=== PATIENT | male | born 1955 | race Caucasian/White ===

== ENCOUNTER 2019-07-14 17:15 | Emergency (ER) | payer MEDICARE, MEDICAID, SELFPAY ==
--- NOTE | ~2019-07-14 | XR_ITS ---
EXAMINATION: XR chest 2V DATE: 07/14/2019 19:06 INDICATION: COPD presenting with 2-3 days of cough and fever. TECHNIQUE: PA and lateral views of the chest were obtained. COMPARISON: None FINDINGS: Evaluation limited particularly on the lateral projection by patient body habitus. Airspace opacities with air bronchograms at the posterior lung bases on the lateral projection. It is unclear whether t his on the left, right or bilaterally. No pleural effusion or pneumothorax. The cardiomediastinal rafy houette is normal. IMPRESSION: 1. Opacities with air bronchograms at the posterior lung bases concerning for pneumonia with differen tial including atelectasis, greater on the left, right or bilaterally. Reviewed, dictated and finalized at location A. UTER SYSTEMS ADMINISTRATOR IMPRESSION: 1. Opacities with air bronchograms at the posterior lung bases concerning for p neumonia with differential including atelectasis, greater on the left, right or bilaterally.
[2019-07-14 17:31] VITALS: BP 138/60; PULSE 82; RESP 20; TEMP 39.4; O2SAT 92
--- NOTE | 2019-07-14 18:13 | ED.SOB ---
HPI - SOB/Dyspnea General Chief Complaint: Shortness of Breath/Dyspnea Stated Complaint: fever/cough Time Seen by Provider: 07/14/19 18:12 Source: patient and RN notes reviewed Mode of arrival: EMS Limitations: no limitations History of Present Illness HPI Narrative: Pt is a 64 y/o male who presents to the ED, via EMS from [facility], with c/o a fever and a cough that began 3 days ago (07/11/19). Per nurse, pt was dx with CHF recently. Pt was sent from the [place] because he was not responding to his Lasix. Pt has Influenza A and he was started Tamiflu at the [place]. Pt had a chest x-ray yesterday that showed cardiomegaly and possible pneumonia. Pt last had Tylenol at 11 AM today. Per pt, pt notes that his temperature earlier today at the [place] was 100.2 degrees. He notes that he does not walk because he cannot get his body to cooperate enough to walk. He states that he fell last year and landed in the splits position. He notes that he was in the splits position for about 4 hours before he was able to get help to get up. Pt also reports fatigue, abd pain with coughing, no abd pain currently. He denies shortness of breath, he does report some faint wheezing. Pt reported chest pain, epigastric pain earlier in the day, none currently. MD elicited complaint: cough (and a fever) Onset (ago): day(s) (3) Timing: constant Associated symptoms: chest pain, abdominal pain (epigastric) and other (fatigue) Treatment prior to arrival: other (Tylenol at 11 AM) Related Data Allergies Allergy/AdvReac Type Severity Reaction Status Date / Time gabapentin AdvReac Unknown Verified 07/14/19 19:08 valsartan AdvReac Unknown Verified 07/14/19 19:09 Review of Systems Review of Systems: Narrative: CONSTITUTIONAL: Reports fever and fatigue. CARDIOVASCULAR: Reports pain with coughing, denies chest pain currently in the ED RESPIRATORY: Reports cough. Denies dyspnea. GASTROINTESTINAL: Reports epigastric abdominal pain, chronic SKIN: Reports leg swelling, chronic All systems reviewed & are unremarkable except as noted in HPI and below PMFSH Past Medical History Medical History (Updated 07/14/19 @ 19:49 by Moira Junior MD) Cardiomegaly CHF (congestive heart failure) COPD (chronic obstructive pulmonary disease) Influenza A Medical history unknown Sleep apnea Surgical History Surgical History (Updated 07/14/19 @ 19:28 by Holly Garcia) Surgical history unknown Social History Social History (Updated 07/14/19 @ 19:30 by Holly Garcia) Smoking status: Former smoker Gender identity (if verbalized by the patient): Male Exam Narrative: Exam Narrative: GENERAL: Well-appearing, awake, alert, obese, and in no acute distress. HEAD: Normocephalic, atraumatic. EYES: PERRLA and EOMI. ENT: Nares clear, no rhinorrhea or epistaxis. Mucous membranes moist. Oropharynx clear. NECK: Supple. CHEST: Faint expiratory wheezing right lower lung, left lung clear, shallow aeration due to body habitus. No respiratory distress. No tachypnea, no use of accessory muscles to breathe. HEART: Regular rate and rhythm. No murmur heard. Normal peripheral pulses. ABDOMEN: Soft, obese abdomen, no epigastric tenderness, no RUQ tenderness, nondistended, normal active bowel sounds. EXTREMITIES: Normal range of motion. Lower extremity lymphedema, chronic venous stasis changes, excoriation with mild erythema, no purulent discharge, no vesicles or weeping. SKIN: Warm, dry, no abscess NEURO: No focal deficits. Alert and oriented X3. Course Course Emergency Course: Patient presenting for evaluation of fever, cough, and staff at the care facility was concerned he was not responding to Lasix. At the time of initial assessment, ABCs are intact and vital signs are stable. Patient is morbidly obese, but overall is well-appearing without respiratory distress or increased work of breathing. Patient has obstructive sleep apnea, borderline hypoxia but refuses to wear oxygen. He has influ
--- NOTE | 2019-07-14 18:20 | ECG_ITS ---
Measurements Intervals [place] Rate: 81 P: [place]: 0 QRS: 62 QRSD: 152 T: 4 QT: 381 QTc: 443 Interpretive Statements ATRIAL FIBRILLATION RIGHT BUNDLE BRANCH BLOCK LOW VOLTAGE- PRECORDIAL LEADS ABNORMAL ECG Electronically Signed On 07-15-2019 7:07:36 MILK CONDENSER by Sunil Barker D.O.
[2019-07-14] MEDS: ALBUTEROL SULFATE NEB 2.5 MG/0.5 ML INH 5 MG INHALATION (18:33)
[2019-07-14] MEDS: IPRATROPIUM BR 0.02% INH SOLN 0.5 MG/2.5 ML VIAL INHALATION (18:33)
[2019-07-14 18:41] VITALS: PULSE 81; RESP 24
[2019-07-14 18:47] LABS: Alveolar/Arterial O2 Gradient 42.6 mmHg; Device ROOM AIR; Fractional Inspired Oxygen 21 %; Modified Allen's Test Pass; Oxygen Content ABG 18.1 %vol (16.0-22.0); Oxygen Saturation ABG 92.2 % (95.0-100.0); Oxyhemoglobin 90.7 % THb (90.0-100.0); PCO2 ABG 39.9 mmHg (35.0-45.0); PO2 ABG 59.4 mmHg (80.0-100.0); PO2 FiO2 Ratio Arterial Blood 2.83 %; Site Drawn LEFT RADIAL; Total Hemoglobin 14.2 g/dL (12.0-18.0); pH ABG 7.464 (7.350-7.450)
[2019-07-14 18:49] VITALS: PULSE 83; RESP 20
[2019-07-14 18:51] LABS: Basophils Percent Auto 0.5 % (0.2-1.2); Eosinophils Percent Auto 0.5 % (0-4.4); Hematocrit 41.1 % (42.0-52.0); Hemoglobin 13.4 g/dL (14.0-18.0); Immature Granulocyte Absolute 0.02 K/mm3 (0.00-0.031); Immature Granulocyte Percent A 0.5 % (0-0.5); Immature Platelet Fraction Pct 2.5 % (0.9-11.2); Lymphocytes Absolute Auto 0.46 K/mm3 (0.9-3.2); Lymphocytes Percent Auto 10.8 % (18.3-44.2); Mean Corpuscular HGB Conc 32.6 g/dl (32-36); Mean Corpuscular Hemoglobin 29.5 pg (26-34); Mean Corpuscular Volume 90.3 fl (80-100); Monocytes Absolute Auto 0.5 K/mm3 (0.1-0.6); Monocytes Percent Auto 11.1 % (2.6-8.5); Neutrophils Absolute Auto 3.3 K/mm3 (1.3-6.7); Neutrophils Percent Auto 76.6 % (45.5-73.1); Platelet Count Result 127 k/mm3 (150-375); Red Blood Count 4.55 M/mm3 (4.6-6.20); Red Cell Distribution Width 16.1 % (11.5-14.5); White Blood Count 4.2 K/mm3 (4.5-10.0)
[2019-07-14 18:58] LABS: INR 1.2; Prothrombin Time 15.2 Seconds (11.1-14.7)
[2019-07-14 18:59] LABS: Partial Thromboplastin Time 35.6 SECONDS (22.3-36.8)
[2019-07-14 19:00] LABS: Lactic Acid Reflex 0.9 mmol/L (0.7-2.1); Lipase 68 U/L (23-300)
[2019-07-14 19:09] LABS: NT Pro B Type Natriuretic Pept 2150 PG/ML (5-100)
[2019-07-14] MEDS: methylPREDNISolone SOD SUCC 125 MG VIAL IV PUSH (19:17)
[2019-07-14] MEDS: SODIUM CHLORIDE 0.9% IV 500 ML 999 ML IV CONT (19:17)
[2019-07-14] MEDS: ACETAMINOPHEN 500 MG TABLET 1000 MG PO (19:28)
[2019-07-14 19:30] VITALS: BP 126/70; PULSE 86; RESP 11; O2SAT 89
[2019-07-14 19:52] LABS: Alanine Aminotransferase 30 U/L (4-50); Albumin Level 3.6 g/dL (3.5-5.1); Alkaline Phosphatase 163 U/L (38-126); Aspartate Amino Transferase 38 U/L (17-59); Bilirubin,Total 1.1 mg/dL (0.2-1.3); Blood Urea Nitrogen 17 mg/dL (9-20); Calcium 8.3 mg/dL (8.4-10.2); Carbon Dioxide 28 mmol/L (22-30); Chloride 92 mmol/L (98-107); Estimated Glomerular Filt Rate > 60; Glucose 106 mg/dL (75-110); Potassium 3.8 mmol/L (3.4-5.0); Sodium 132 mmol/L (137-145)
[2019-07-14] MEDS: AZITHROMYCIN 250 MG TABLET 1000 MG PO (19:57)
[2019-07-14] MEDS: OSELTAMIVIR PHOSPHATE 75 MG CAP PO (19:58)
[2019-07-14 20:04] LABS: Troponin I < 0.012 ng/mL (0.000-0.034)
--- NOTE | 2019-07-14 21:39 | PC.NURSE ---
Called Shalonda to transport patient back to facility...ETA approximately [phone].
[2019-07-14 22:45] VITALS: BP 123/63; PULSE 69; RESP 18; O2SAT 90
[2019-07-14 23:15] VITALS: BP 123/63; PULSE 69; RESP 24; O2SAT 90
== END 2019-07-14 23:15 ==
PROVIDERS: Emergency Provider Emergency Medicine
DX: J10.1 Influenza due to other identified influenza virus with other respiratory manifestations (principal); J18.9 Pneumonia, unspecified organism; I50.9 Heart failure, unspecified; J44.9 Chronic obstructive pulmonary disease, unspecified; G47.30 Sleep apnea, unspecified; Z87.891 Personal history of nicotine dependence; I48.91 Unspecified atrial fibrillation
CPT/HCPCS: 36415; 36600; 71046; 80053; 82805; 83605; 83690; 83880; 84484; 85025; 85055; 85610; 85730; 87040; 87804; 93005; 94640; 96365; 96375; 99284; A9270; J0696; J2930; J7040

== ENCOUNTER 2021-06-01 08:00 | Emergency (ER) | payer MEDICARE, MEDICAID, SELFPAY ==
[2021-06-01] VITALS (26 sets, daily range): BP systolic 131–158; BP diastolic 56–74; PULSE 83–107; RESP 15–40; TEMP 37.1; O2SAT 81–99
--- NOTE | ~2021-06-01 | XR_ITS ---
EXAMINATION: XR chest 2V DATE: 06/01/2021 08:35 INDICATION: Shortness of breath TECHNIQUE: frontal and lateral views of the chest were obtained. COMPARISON: Chest radiograph dated 07/14/2019 FINDINGS: Evaluation somewhat limited by patient body habitus. Chronic elevation the right hemidiaphragm. Opaci ties in the right lower lung zone consistent with small right pleural effusion and associated atelect asis versus pneumonia. Pulmonary vascular congestion. Bronchial wall thickening versus bronchial cuff ing in the lower lung zones which could represent bronchitis or mild pulmonary edema. No pneumothorax . The cardiomediastinal silhouette is normal. IMPRESSION: 1. Small right pleural effusion with associated right basilar atelectasis and/or pneumonia. 2. Bronchial wall thickening in the bilateral infrahilar regions which could be due to bronchitis or mild pulmonary edema. Reviewed, dictated and finalized at location A. LACER IMPRESSION: 1. Small right pleural effusion with associated right basilar atelectasis and/o r pneumonia. 2. Bronchial wall thickening in the bilateral infrahilar regions which could be due to bronchitis or mild pulmonary edema.
--- NOTE | 2021-06-01 08:15 | ECG_ITS ---
Measurements Intervals [place] Rate: 91 P: AL: 0 QRS: 94 QRSD: 138 T: 16 QT: 379 QTc: 467 Interpretive Statements ATRIAL FIBRILLATION RIGHT BUNDLE BRANCH BLOCK BASELINE ARTIFACT- I, II, III, AVR, AVL, AVF, V2-V3 ABNORMAL ECG Electronically Signed On 06-01-2021 9:44:44 WELFARE ADMINISTRATOR by Sunil Barker D.O.
--- NOTE | 2021-06-01 08:18 | ED.SOB ---
HPI - SOB/Dyspnea General Chief Complaint: Shortness of Breath/Dyspnea Stated Complaint: SOB Time Seen by Provider: 06/01/21 08:18 Source: patient and EMS Mode of arrival: EMS Limitations: no limitations History of Present Illness HPI Narrative: Patient is 66 years old white male brought to the emergency room by ambulance from [facility] because of hypoxia. Patient is telling me that he had a dream that he is building a house with one of his friends and that house was unique because have no exit. Patient somehow got up and realized immediately that he is not familiar with his bedroom, patient called 911 then the nurse came over and found that the oxygenation in the 70s and patient have no nasal cannula on. Patient on chronic oxygen by nasal cannula 2 L. After placing the nasal cannula back patient started going slowly back to normal, become more alert, less confused and almost back to normal. In the emergency room patient is awake, alert and oriented x4 denying any symptoms. Patient is telling me that he feels exactly the same as yesterday nothing new and nothing different. Patient denies any fever, chills, nausea, vomiting, headache, shortness of breath, chest pain. Patient is requesting a breakfast right now Related Data Allergies Allergy/AdvReac Type Severity Reaction Status Date / Time gabapentin AdvReac Unknown Verified 07/14/19 19:08 valsartan AdvReac Unknown Verified 07/14/19 19:09 Review of Systems Review of Systems: CONSTITUTIONAL: Denies fever, chills, or sweats. EYES: Denies visual changes, redness, or discharge. ENT: Denies rhinorrhea, congestion, sore throat, or otalgia. CARDIOVASCULAR: Denies chest pain, palpitations, or edema. RESPIRATORY: Denies cough or dyspnea. GASTROINTESTINAL: Denies abdominal pain, nausea, vomiting, or diarrhea. GENITOURINARY: Denies dysuria or hematuria. SKIN: Denies rash or itching. MUSCULOSKELETAL: Denies back pain, joint pain, or myalgia. NEUROLOGIC: Denies headache, numbness, or weakness. PSYCHIATRIC: Denies anxiety or depression. [facility] Past Medical History Medical History Cardiomegaly CHF (congestive heart failure) COPD (chronic obstructive pulmonary disease) Influenza A Medical history unknown Sleep apnea Surgical History Surgical History Surgical history unknown Social History Social History Smoking status: Former smoker Gender identity (if verbalized by the patient): Male Exam Narrative: General appearance: Well-developed, well-nourished, morbidly obese Skin: Normal color Head: Normocephalic, nontraumatic Eyes: Clear conjunctiva ENT: Oropharynx normal, ears normal, nose normal Neck: Supple, nontender Chest and respiratory: Airway patent, no respiratory distress, no accessory muscle use Heart: Regular rate/rhythm Abdomen: Soft, nontender, no organomegaly, quiet bowel sounds Vascular: Normal peripheral pulses, normal capillary refill. Musculoskeletal: General limitation of movement because of the obesity Neurologic: Alert and oriented ?3, LEVEL VIAL INSIDE GRINDER is normal as tested, no gross motor deficit Course Course Emergency Course: Resolved, improved Vital Signs Vital signs: Vital Signs Temperature 37.1 C 06/01/21 08:04 Pulse Rate 92 06/01/21 08:04 Respiratory Rate 27 H 06/01/21 08:04 Blood Pressure 133/71 06/01/21 08:04 Pulse Oximetry 81 L 06/01/21 08:04 Temperature 37.1 C 06/01/21 08:04 Pulse Rate 89 06/01/21 10:01 Respiratory Rate 21 H 06/01/21 10:01 Blood Pressure 156/64 H 06/01/21 10:01 Pulse Oximetry 9
[2021-06-01 08:23] LABS: Basophils Percent Auto 0.6 % (0.2-1.2); Eosinophils Absolute Auto 0.3 K/mm3 (0-0.3); Eosinophils Percent Auto 4.6 % (0-4.4); Hematocrit 41.8 % (42.0-52.0); Hemoglobin 11.8 g/dL (14.0-18.0); Immature Granulocyte Absolute 0.04 K/mm3 (0.00-0.031); Immature Granulocyte Percent A 0.6 % (0-0.5); Lymphocytes Absolute Auto 0.73 K/mm3 (0.9-3.2); Lymphocytes Percent Auto 10.1 % (18.3-44.2); Mean Corpuscular HGB Conc 28.2 g/dl (32-36); Mean Corpuscular Hemoglobin 29.2 pg (26-34); Mean Corpuscular Volume 103.5 fl (80-100); Mean Platelet Volume 9.6 fl (7.4-10.4); Monocytes Absolute Auto 0.7 K/mm3 (0.1-0.6); Monocytes Percent Auto 10.2 % (2.6-8.5); Neutrophils Absolute Auto 5.4 K/mm3 (1.3-6.7); Neutrophils Percent Auto 73.9 % (45.5-73.1); Platelet Count Result 171 k/mm3 (150-375); Red Blood Count 4.04 M/mm3 (4.6-6.20); Red Cell Distribution Width 17.2 % (11.5-14.5); White Blood Count 7.3 K/mm3 (4.5-10.0)
[2021-06-01 08:40] LABS: Alanine Aminotransferase 17 U/L (4-50); Albumin Level 3.4 g/dL (3.5-5.1); Alkaline Phosphatase 169 U/L (38-126); Aspartate Amino Transferase 28 U/L (17-59); Blood Urea Nitrogen 15 mg/dL (9-20); Calcium 8.8 mg/dL (8.4-10.2); Carbon Dioxide > 40 mmol/L (22-30); Chloride 79 mmol/L (98-107); Estimated Glomerular Filt Rate > 60; Glucose 114 mg/dL (65-110); Potassium 4.2 mmol/L (3.4-5.0); Sodium 137 mmol/L (137-145)
[2021-06-01 08:48] LABS: NT Pro B Type Natriuretic Pept 1990 pg/mL (5-100); Troponin I < 0.012 ng/mL (0.000-0.034)
[2021-06-01 08:56] LABS: Base Excess ABG 27.7 mEq/l (+/-2.0); Fractional Inspired Oxygen 28 %; HCO3 ABG 58.9 mEq/l (22.0-26.0); Oxygen Content ABG 16.6 %vol (16.0-22.0); Oxyhemoglobin 93.4 % THb (90.0-100.0); PO2 ABG 82.5 mmHg (80.0-100.0); PO2 FiO2 Ratio Arterial Blood 2.95 %; Total Hemoglobin 12.6 g/dL (12.0-18.0); pH ABG 7.382 (7.350-7.450)
[2021-06-01 09:04] LABS: PCO2 ABG 101.3 mmHg (35.0-45.0)
[2021-06-01 09:21] LABS: INR 1.1; Partial Thromboplastin Time 28.9 SECONDS (22.3-36.8); Prothrombin Time 14.1 Seconds (11.1-14.7)
[2021-06-01 09:24] LABS: D Dimer 0.46 ug/mL (<0.48)
--- NOTE | 2021-06-01 09:56 | PC.NURSE ---
[facility] contacted for transport back to [facility]. eta [phone]
--- NOTE | 2021-06-01 11:42 | PC.NURSE ---
report called to [facility]
[2021-06-01 14:13] LABS: Device NASAL CANNULA; Modified Allen's Test Pass; Site Drawn RIGHT RADIAL
[2021-06-01 15:21] LABS: Glucose Point of Care 114 mg/dl (65-105)
--- NOTE | 2021-06-01 18:00 | PC.NURSE ---
called Shalonda at [phone], to go back to [facility] eta [phone], updated at 1447, eta 1700, updated at 1800, eta 1815.
[2021-06-02 03:58] LABS: SARS-CoV-2 RNA PCR Negative
== END 2021-06-01 18:30 ==
LOC: ANHED 09:50
PROVIDERS: Emergency Provider Emergency Medicine; PCP Internal Medicine
DX: G47.34 Idiopathic sleep related nonobstructive alveolar hypoventilation (principal); I50.9 Heart failure, unspecified; J44.9 Chronic obstructive pulmonary disease, unspecified; Z99.81 Dependence on supplemental oxygen; Z20.822 Contact with and (suspected) exposure to COVID-19; Z87.891 Personal history of nicotine dependence
CPT/HCPCS: 36415; 36600; 71046; 80053; 82805; 82948; 83880; 84484; 85025; 85380; 85610; 85730; 87804; 93005; 99284; C9803; U0003; U0005

== ENCOUNTER 2021-06-09 10:13 | Inpatient (IN) | payer MEDICARE, MEDICAID, SELFPAY ==
[2021-06-09] VITALS (23 sets, daily range): BP systolic 112–140; BP diastolic 64–76; PULSE 57–90; RESP 15–31; O2SAT 97–100
--- NOTE | ~2021-06-09 | XR_ITS ---
EXAMINATION: XR chest 1V portable DATE: 06/09/2021 11:27 INDICATION: Shortness of breath TECHNIQUE: frontal view of the chest was obtained. COMPARISON: Chest radiograph dated 05/24/2021 FINDINGS: Assessment is somewhat limited by patient body habitus as well as extrusion of the lateral left lower lung zone and costophrenic angle from the field of imaging. There are new opacities in the right mid to lower lung zone consistent with small to moderate right pleural effusion portion tracking along t he fissure and associated basilar atelectasis and/or pneumonia. Bandlike discoid atelectasis/scarring at the left apex. Hazy opacities throughout the left hemithorax with suggestion of small more patchy opacity left lower lung zone suspicious for small posterior layering left pleural effusion additiona l basilar atelectasis and/or pneumonia. No pneumothorax. Cardiomegaly. IMPRESSION: 1. Limited study with bilateral lung disease consistent with small to moderate-sized right and likely small left pleural effusions with basilar atelectasis and/or pneumonia. 2. Cardiomegaly. Reviewed, dictated and finalized at location B. SECURITY ARCHITECT IMPRESSION: 1. Limited study with bilateral lung disease consistent with small to moderate- sized right and likely small left pleural effusions with basilar atelectasis an d/or pneumonia. 2. Cardiomegaly.
[2021-06-09 11:05] LABS: Basophils Percent Auto 0.4 % (0.2-1.2); Eosinophils Absolute Auto 0.2 K/mm3 (0-0.3); Eosinophils Percent Auto 2.3 % (0-4.4); Hematocrit 42.9 % (42.0-52.0); Hemoglobin 12.3 g/dL (14.0-18.0); Immature Granulocyte Absolute 0.04 K/mm3 (0.00-0.031); Immature Granulocyte Percent A 0.4 % (0-0.5); Lymphocytes Absolute Auto 0.59 K/mm3 (0.9-3.2); Lymphocytes Percent Auto 6.2 % (18.3-44.2); Mean Corpuscular HGB Conc 28.7 g/dl (32-36); Mean Corpuscular Hemoglobin 29.5 pg (26-34); Mean Corpuscular Volume 102.9 fl (80-100); Mean Platelet Volume 9.4 fl (7.4-10.4); Monocytes Absolute Auto 0.9 K/mm3 (0.1-0.6); Monocytes Percent Auto 9.8 % (2.6-8.5); Neutrophils Absolute Auto 7.7 K/mm3 (1.3-6.7); Neutrophils Percent Auto 80.9 % (45.5-73.1); Platelet Count Result 182 k/mm3 (150-375); Red Blood Count 4.17 M/mm3 (4.6-6.20); White Blood Count 9.5 K/mm3 (4.5-10.0)
[2021-06-09 11:14] LABS: Alveolar/Arterial O2 Gradient 313.4 mmHg; Base Excess ABG 29.8 mEq/l (+/-2.0); Fractional Inspired Oxygen 100 %; HCO3 ABG 64.3 mEq/l (22.0-26.0); Oxygen Content ABG 18.4 %vol (16.0-22.0); Oxygen Saturation ABG 99.4 % (95.0-100.0); Oxyhemoglobin 97.1 % THb (90.0-100.0); PO2 ABG 260.6 mmHg (80.0-100.0); PO2 FiO2 Ratio Arterial Blood 2.61 %
[2021-06-09 11:16] LABS: Modified Allen's Test Pass; Site Drawn LEFT RADIAL; pH ABG 7.283 (7.350-7.450)
[2021-06-09 11:17] LABS: Device NON-REBREATHER MASK
[2021-06-09 11:30] LABS: Blood Urea Nitrogen 18 mg/dL (9-20); Calcium 9.3 mg/dL (8.4-10.2); Carbon Dioxide > 40 mmol/L (22-30); Chloride 79 mmol/L (98-107); Estimated CRCL calculation 243 ml/min; Estimated Glomerular Filt Rate > 60; Glucose 117 mg/dL (65-110); Potassium 4.5 mmol/L (3.4-5.0); Sodium 137 mmol/L (137-145)
[2021-06-09 11:33] LABS: NT Pro B Type Natriuretic Pept 3100 pg/mL (5-100)
--- NOTE | 2021-06-09 12:58 | ED.SOB ---
HPI - SOB/Dyspnea General Chief Complaint: Shortness of Breath/Dyspnea Stated Complaint: DIFFICULTY BREATHING Time Seen by Provider: 06/09/21 10:30 History of Present Illness HPI Narrative: Patient is a 66-year-old male with history of COPD and CHF who is dependent on 2 L O2 via nasal cannula who presents ER with decreased oxygen saturation. Lives in a long-term. Patient found with O2 saturation of 86% and was placed on nonrebreather by EMS with immediate improvement. Patient reports increased sleepiness and fatigue ongoing for couple weeks. No fevers or chills or sweats. Denies cough. Patient reports he does not sleep with the BiPAP as he does not have one. Related Data Allergies Allergy/AdvReac Type Severity Reaction Status Date / Time gabapentin AdvReac Unknown Verified 06/09/21 10:29 valsartan AdvReac Unknown Verified 06/09/21 10:29 Review of Systems Review of Systems: ROS unobtainable: Yes unobtainable due to mental status PMFSH Past Medical History Medical History Cardiomegaly CHF (congestive heart failure) COPD (chronic obstructive pulmonary disease) Influenza A Medical history unknown Sleep apnea Surgical History Surgical History Surgical history unknown Social History Social History Smoking status: Former smoker Gender identity (if verbalized by the patient): Male Exam Narrative: GENERAL: Chronically ill-appearing, morbidly obese. HEAD: Normocephalic, atraumatic. ENT: Mucous membranes moist. CHEST: Clear to auscultation. No respiratory distress. HEART: Regular rate and rhythm. Normal peripheral pulses. ABDOMEN: Soft, nontender, protuberant abdomen. EXTREMITIES: Normal range of motion. 2+edema. SKIN: Warm, dry, no rash. NEURO: Alert and oriented x3. PSYCH: Normal mood and affect. Course Course Emergency Course: Patient waking up on BiPAP. Admit to hospital service. Vital Signs Vital signs: Vital Signs Pulse Rate 71 06/09/21 10:18 Respiratory Rate 23 H 06/09/21 10:18 Blood Pressure 132/73 06/09/21 10:18 Pulse Oximetry 100 06/09/21 10:18 Pulse Rate 73 01/05/22 16:40 Respiratory Rate 22 H 06/09/21 16:40 Blood Pressure 131/66 06/09/21 14:56 Pulse Oximetry 100 06/09/21 16:40 MDM - SOB/Dyspnea Lab Data Result diagrams: 06/09/21 10:53 06/09/21 10:53 Labs: Lab Results 06/09/21 06/09/21 Range/Units 10:53 10:53 WBC 9.5 (4.5-10.0) K/mm3 RBC 4.17 L (4.6-6.20) M/mm3 Hgb 12.3 L (14.0-18.0) g/dL Hct 42.9 (42.0-52.0) % MCV 102.9 H (80-100) fl MCH 29.5 (26-34) pg MCHC 28.7 L (32-36) g/dl RDW 17.0 H (11.5-14.5) % Plt Count 182 (150-375) k/mm3 MPV 9.4 (7.4-10.4) fl Immature Gran % (Auto) 0.4 (0-0.5) % Neut % (Auto) 80.9 H (45.5-73.1) % Lymph % (Auto) 6.2 L (18.3-44.2) % [place] % (Auto) 9.8 H (2.6-8.5) % Eos % (Auto) 2.3 (0-4.4) % Baso % (Auto) 0.4 (0.2-1.2) % Lymph # (Auto) 0.59 L (0.9-3.2) K/mm3 [place] # (Auto) 0.9 H (0.1-0.6) K/mm3 Eos # (Auto) 0.2 (0-0.3) K/mm3 Baso # (Auto) 0.0 (0.0-0.1) K/mm3 Abs Immat Gran (auto) 0.04 H (0.00-0.031) K/mm3 Absolute Neuts (auto) 7.7 H (1.3-6.7) K/mm3 Absolute Nucleated RBC 0.0 (0.0-0.012) K/mm3 Nucleated RBC % 0.0 (0.0-0.2) % Sodium 137 (137-145) mmol/L Potassium 4.5 (3.4-5.0) mmol/L Chloride 79 L (98-107) mmol/L Carbon Dioxide > 40 H (22-30) mmol/L Anion Gap (8-16) mmol/L BUN 18 (9-20) mg/dL Creatinine 0.60 L (0.7-1.3) mg/dL Estim Creat Clear Calc 243 ml/min Estimated GFR > 60 (59 - ) Glucose 117 H (65-110) mg/dL Calcium 9.3 (8.4-10.2) mg/dL NT-Pro-B Natriuret Pep 3100 H (5-100) pg/mL ABG Data ABG results: 06/09/21 11:06 Puncture Site Left radial ABG pH 7.283 L* ABG pCO2 13
--- NOTE | 2021-06-09 14:00 | PC.NURSE ---
attempted to place catheter x2, unable to do so. will call and ask for [place] catheter
[2021-06-09] MEDS: FUROSEMIDE INJ 40 MG/4 ML VIAL IV PUSH (14:25)
--- NOTE | 2021-06-09 14:27 | PC.NURSE ---
condom catheter applied per ZAIDA Diehl.
[2021-06-09] MEDS: ONDANSETRON INJ 4 MG/2 ML VIAL IV PUSH (15:49)
--- NOTE | 2021-06-09 18:50 | PM.IMHP ---
H&P: HPI History of Present Illness Date/Time: 06/09/21 18:50 ED-HPI Narrative: Patient is a 66-year-old male with history of COPD and CHF who is dependent on 2 L O2 via nasal cannula who presents ER with decreased oxygen saturation. Lives in a assisted. Patient found with O2 saturation of 86% and was placed on nonrebreather by EMS with immediate improvement. Patient reports increased sleepiness and fatigue ongoing for couple weeks. No fevers or chills or sweats. Denies cough. Patient reports he does not sleep with the BiPAP as he does not have one. 06/09/2021 interval history morbidly obese with acute respiratory failure hypoxia secondary to hypercarbia currently ABG showed pCO2 of 139 patient is somnolent on BiPAP unable to provide any history review of symptom will continue present management and will monitor. Chief Complaint: shortness of breath Review of Systems Review of Systems: ROS unobtainable: Yes unobtainable due to medical condition PMFSH Past Medical History Medical History (Updated 06/10/21 @ 17:41 by Andrea Mcdonald MD) Cardiomegaly CHF (congestive heart failure) COPD (chronic obstructive pulmonary disease) Influenza A Medical history unknown Sleep apnea Surgical History Surgical History Surgical history unknown Social History Social History Smoking status: Former smoker Gender identity (if verbalized by the patient): Male Meds Home Medications and Allergies Home Medications Medication Instructions Recorded Confirmed Type acetaminophen [Tylenol] 650 mg PO Q6-12H 7 Days #30 cap 07/14/19 Rx albuterol sulfate 1 inh INHALATION Q4-6H PRN #1 each 07/14/19 Rx doxycycline hyclate 100 mg PO Q12H 10 Days #20 cap 07/14/19 Rx oseltamivir [Tamiflu] 75 mg PO Q12H 5 Days #10 cap 07/14/19 Rx prednisone 60 mg PO DAILY 5 Days #15 tablet 07/14/19 Rx pregabalin 75 mg capsule 75 mg PO TID #270 cap 08/15/19 Rx Allergies Allergy/AdvReac Type Severity Reaction Status Date / Time gabapentin AdvReac Unknown Verified 06/09/21 10:29 valsartan AdvReac Unknown Verified 06/09/21 10:29 Vital Signs Vital Signs - 24 hr 06/09/21 10:18 06/09/21 10:28 06/09/21 11:46 Pulse Rate 71 76 Respiratory Rate 23 H 23 H Blood Pressure 132/73 133/67 Pulse Oximetry 100 100 100 06/09/21 11:47 06/09/21 11:59 06/09/21 12:00 Pulse Rate 68 68 82 Respiratory Rate 15 25 H 26 H Blood Pressure Pulse Oximetry 100 100 99 06/09/21 12:55 06/09/21 13:00 06/09/21 13:29 Pulse Rate 62 57 L 71 Respiratory Rate 19 23 H 16 Blood Pressure Pulse Oximetry 100 100 06/09/21 13:30 06/09/21 14:39 06/09/21 14:56 Pulse Rate 74 69 68 Respiratory Rate 18 24 H 18 Blood Pressure 131/66 Pulse Oximetry 100 100 100 06/09/21 16:40 06/09/21 17:53 06/09/21 18:07 Pulse Rate 73 84 80 Respiratory Rate 22 H 23 H 22 H Blood Pressure 112/64 Pulse Oximetry 100 99 100 Exam Narrative: morbidly obese BMI 86.6 Patient is comfortable, NAD HEENT: eyes are clear and none icteric on BiPAP LUNGS: normal respiratory effort ABD: distended Lower extremities: edema SKIN: nonjaundiced Neuro: grossly intact. H&P: Results Labs Labs: Short CBC 06/09/21 Range/Units 10:53 WBC 9.5 (4.5-10.0) K/mm3 Hgb 12.3 L (14.0-18.0) g/dL Hct 42.9 (42.0-52.0) % Plt Count 182 (150-375) k/mm3 BMP 06/09/21 10:53 Sodium 137 Potassium 4.5 Chloride 79 L Carbon Dioxide > 40 H BUN 18 Creatinine 0.60 L Glucose 117 H Calcium 9.3 Assessment and Plan Assessment and plan (1) Acute and chronic respiratory failure with hypercapnia: Code(s): J96.22 - Acute and chronic respiratory failure with hypercapnia Status: Acute Assessment and Plan: ED-HPI Narrative: Patient is a 66-year-old male with history of COPD and CHF who is dependent on 2 L O2 via nasal cannula who p
[2021-06-10] VITALS (38 sets, daily range): BP systolic 101–162; BP diastolic 60–130; PULSE 66–105; RESP 14–32; TEMP 36.8–37.2; O2SAT 49–100; BMI 86.6
--- NOTE | 2021-06-10 02:37 | PC.NURSE ---
roofing plant supervisor contacted at this time to move pt to more comfortable bed.
--- NOTE | 2021-06-10 04:39 | PC.NURSE ---
respiratory to room at this time.
--- NOTE | 2021-06-10 06:50 | PC.NURSE ---
Wedge moved under pt right hip to promote pt comfort.
--- NOTE | 2021-06-10 09:25 | PC.NURSE ---
This nurse walked into patient having his bipap off of his face. When this nurse attempted to replace the mask, pt stated that he did not want me to put it on and that, I am a man. I have grown children older than you. I don't want that mask on. I just want to . This nurse attempted to explain to the patient the importance of having the mask on, but pt still stated that he did not want me to put on any type of oxygen. This nurse then called in the Charge nurse Teri and other RN Thu to verify with this nurse that the pt is A&Ox4 and indeed wants to be DNR. Pt is currently A&Ox4 and states that he wants no resuscitative measures if he were to stop breathing or his heart were to stop. MD Collado called to be made aware of pt change in status.
--- NOTE | 2021-06-10 09:40 | PC.NURSE ---
this nurse spoke to md Cutler to make him aware of pt wishes to become a DNR. Per , he states that we are to talk to [facility] to clarify if he is a DNR at the facility.
--- NOTE | 2021-06-10 09:55 | PC.NURSE ---
This nurse spoke to [facility] and was notified that the pt is a full code and has never had paperwork to be a DNR.
[2021-06-10 10:09] LABS: Alveolar/Arterial O2 Gradient 157.3 mmHg; Fractional Inspired Oxygen 44 %; HCO3 ABG 50.1 mEq/l (22.0-26.0); Oxygen Content ABG 16.2 %vol (16.0-22.0); PO2 ABG 55.6 mmHg (80.0-100.0); PO2 FiO2 Ratio Arterial Blood 1.26 %; Total Hemoglobin 13.2 g/dL (12.0-18.0); pH ABG 7.371 (7.350-7.450)
[2021-06-10 10:10] LABS: PCO2 ABG 88.4 mmHg (35.0-45.0)
[2021-06-10 10:11] LABS: Device HIGH FLOW NASAL CANN; Modified Allen's Test Pass; Oxyhemoglobin 87.5 % THb (90.0-100.0); Site Drawn RIGHT RADIAL
--- NOTE | 2021-06-10 10:14 | PC.NURSE ---
This nurse attempted to call MD Mcdonald for updates on pt code status and critical lab results. This nurse left a voicemail and will attempt to call later.
[2021-06-10] MEDS: BUDESONIDE RESPULE NEB 0.5 MG/2 ML AMP INHALATION ×2 (10:47→21:00)
[2021-06-10] MEDS: OLANZapine 10 MG INJ VIAL 5 MG IM ×2 (11:12→11:18)
[2021-06-10] MEDS: methylPREDNISolone SOD SUCC 125 MG VIAL IV PUSH (11:16)
[2021-06-10 11:17] LABS: Hematocrit 41.4 % (42.0-52.0); Mean Corpuscular Hemoglobin 29.2 pg (26-34); Mean Corpuscular Volume 100.7 fl (80-100); Mean Platelet Volume 9.5 fl (7.4-10.4); Platelet Count Result 209 k/mm3 (150-375); Red Blood Count 4.11 M/mm3 (4.6-6.20); Red Cell Distribution Width 16.7 % (11.5-14.5); White Blood Count 12.5 K/mm3 (4.5-10.0)
--- NOTE | 2021-06-10 11:23 | PC.NURSE ---
This nurse entered room and found patient without nasal cannula on. This nurse attempted to place the nasal cannula back on and the pt ripped the cannula tubing in half. Pt was noted to drop down to 45%. Pt stated things like, I don't want to be on this cruise anymore. and Stop sawing off my legs, I can see blood everywhere. Pt was not being touched at this time. This nurse called MD and made him aware. This nurse received a medication order. This nurse also convinced pt to place the nasal cannula on after he started to turn purple and become more labored and tachypneic.
[2021-06-10 12:02] LABS: Blood Urea Nitrogen 23 mg/dL (9-20); Carbon Dioxide > 40 mmol/L (22-30); Chloride 77 mmol/L (98-107); Estimated CRCL calculation 211 ml/min; Estimated Glomerular Filt Rate > 60; Glucose 137 mg/dL (65-110); Potassium 4.9 mmol/L (3.4-5.0); Sodium 132 mmol/L (137-145)
[2021-06-10] MEDS: SODIUM CHLORIDE 0.9% INJ 10 ML 2 ML (12:32)
[2021-06-10] MEDS: LORazepam INJ (*CRX) 2 MG/ML VIAL 1 MG IV PUSH ×2 (12:32→23:22)
--- NOTE | 2021-06-10 17:45 | PM.IMPN ---
Progress Note: A&P Assessment and Plan (1) Acute and chronic respiratory failure with hypercapnia: Code(s): J96.22 - Acute and chronic respiratory failure with hypercapnia Status: Acute Assessment and Plan: ED-HPI Narrative: Patient is a 66-year-old male with history of COPD and CHF who is dependent on 2 L O2 via nasal cannula who presents ER with decreased oxygen saturation. Lives in a snf. Patient found with O2 saturation of 86% and was placed on nonrebreather by EMS with immediate improvement. Patient reports increased sleepiness and fatigue ongoing for couple weeks. No fevers or chills or sweats. Denies cough. Patient reports he does not sleep with the BiPAP as he does not have one. 06/09/2021 interval history morbidly obese with acute respiratory failure hypoxia secondary to hypercarbia currently ABG showed pCO2 of 139 patient is somnolent on BiPAP unable to provide any history review of symptom will continue present management and will monitor. 06/10/2021 interval history morbidly obese with acute respiratory failure hypoxia secondary to hypercarbia upon arrival ABG showed pCO2 of 139 patient is somnolent on BiPAP, repeat ABG this morning showed pCO2 88 today patient agitated and does not want to keep BiPAP keep taking and off patient was given Zyprexa no improved was given Ativan 1 mg time one, give the patient methylprednisone 125 mg time and started the patient 60 mg every 8 hours, will continue duo-neb, and Pulmicort, patient also has history congestive heart failure diurese the patient IV Lasix 40 mg b.i.d. will continue to monitor will have a PT OT evaluate the patient and further recommendation to follow. (2) CHF (congestive heart failure): Code(s): I50.9 - Heart failure, unspecified Status: Acute Assessment and Plan: patient being diuresed (3) COPD (chronic obstructive pulmonary disease): Code(s): J44.9 - Chronic obstructive pulmonary disease, unspecified Status: Acute Assessment and Plan: most likely exacerbation of COPD Subjective Date/time seen: 06/10/21 17:45 ED-HPI Narrative: Patient is a 66-year-old male with history of COPD and CHF who is dependent on 2 L O2 via nasal cannula who presents ER with decreased oxygen saturation. Lives in a snf. Patient found with O2 saturation of 86% and was placed on nonrebreather by EMS with immediate improvement. Patient reports increased sleepiness and fatigue ongoing for couple weeks. No fevers or chills or sweats. Denies cough. Patient reports he does not sleep with the BiPAP as he does not have one. 06/09/2021 interval history morbidly obese with acute respiratory failure hypoxia secondary to hypercarbia currently ABG showed pCO2 of 139 patient is somnolent on BiPAP unable to provide any history review of symptom will continue present management and will monitor. 06/10/2021 interval history morbidly obese with acute respiratory failure hypoxia secondary to hypercarbia upon arrival ABG showed pCO2 of 139 patient is somnolent on BiPAP, repeat ABG this morning showed pCO2 88 today patient agitated and does not want to keep BiPAP keep taking and off patient was given Zyprexa no improved was given Ativan 1 mg time one, give the patient methylprednisone 125 mg time and started the patient 60 mg every 8 hours, will continue duo-neb, and Pulmicort, patient also has history congestive heart failure diurese the patient IV Lasix 40 mg b.i.d. will continue to monitor will have a PT OT evaluate the patient and further recommendation to follow. Exam Narrative: morbidly obese BMI 86.6 Patient is comfortable, NAD HEENT: eyes are clear and none icteric on BiPAP LUNGS: normal respiratory effort ABD: distended Lower extremities: edema SKIN: nonjaundiced Neuro: grossly intact. Objective Data Vital Signs Vital Signs: Vital Signs - 24 hr 06/09/21 17:53 06/09/21 18:07 06/09/21 19:01 Pu
--- NOTE | 2021-06-10 19:03 | ADMGEN ---
This patient, Ludwig Allen, was admitted to IMU Room 201-01. Patient/family oriented to hospital policies and general routines including ID bracelet, bed and alarms, visiting hours, pain management, procedures, bathroom and other care routines, personal items, smoking policy, room service/diet, and visiting hours. Information on how to activate the Rapid Response Team has been discussed. Patient/Family are encouraged to report perceived risks to care and to ask questions if they do not understand what they are told or what they should do.
[2021-06-10] MEDS: IPRATROPIUM BR 0.02% INH SOLN 0.5 MG/2.5 ML VIAL INHALATION (21:00)
[2021-06-10] MEDS: ALBUTEROL SULFATE NEB 2.5 MG/0.5 ML INH INHALATION (21:00)
[2021-06-10] MEDS: LIDOCAINE HCL 2% GEL UROJET 10 ML PKG MUCOUS MEM (22:30)
[2021-06-10 22:51] LABS: Alveolar/Arterial O2 Gradient 305.6 mmHg; Base Excess ABG 25.4 mEq/l (+/-2.0); Carboxyhemoglobin 0.8 % THb (0-2.0); Fractional Inspired Oxygen 70 %; Methemoglobin ABG 0.3 %THb (0-1.5); Oxygen Saturation ABG 90.7 % (95.0-100.0); PO2 ABG 69.8 mmHg (80.0-100.0); Reduced Hemoglobin 6.9 %THb (0-5.0); Total Hemoglobin 13.1 g/dL (12.0-18.0)
[2021-06-10 22:53] LABS: PCO2 ABG 115.1 mmHg (35.0-45.0)
[2021-06-10 22:54] LABS: Device HIGH FLOW NASAL CANN; Modified Allen's Test Pass; Site Drawn LEFT RADIAL
[2021-06-10] MEDS: ENOXAPARIN 60 MG/0.6 ML SYRINGE SUB-Q (23:26)
--- NOTE | 2021-06-10 23:42 | PM.EVENT ---
Event Note Event Note Event Note: Rapid response called. Patient minimally responsive. He was admitted with respiratory failure and hypercarbia, not tolerating BiPAP. Patient very somnolent, confused, and unable to make his own decisions. is his power of tax associate attorney and she has decided to make him a DNR. ABG was ordered with worsening hypercarbia. Will attempt BiPAP again, if he is intolerant to such will need to get back in touch with the to initiate comfort measures. <Catalina Gant PA-C - Last Filed: 06/10/21 23:43>
[2021-06-10] MEDS: FUROSEMIDE INJ 40 MG/4 ML VIAL IV PUSH (23:45)
[2021-06-11] VITALS (32 sets, daily range): BP systolic 123–142; BP diastolic 57–72; PULSE 57–92; RESP 19–31; TEMP 35.9–37.1; O2SAT 94–100
[2021-06-11] MEDS: ALBUTEROL SULFATE NEB 2.5 MG/0.5 ML INH INHALATION (01:43)
[2021-06-11] MEDS: IPRATROPIUM BR 0.02% INH SOLN 0.5 MG/2.5 ML VIAL INHALATION ×7 (01:43→23:33)
[2021-06-11 02:08] LABS: Alveolar/Arterial O2 Gradient 549.1 mmHg; Base Excess ABG 22.4 mEq/l (+/-2.0); Fractional Inspired Oxygen 100 %; HCO3 ABG 52.8 mEq/l (22.0-26.0); Oxygen Saturation ABG 91.7 % (95.0-100.0); Oxyhemoglobin 92.1 % THb (90.0-100.0); PO2 ABG 68.7 mmHg (80.0-100.0); PO2 FiO2 Ratio Arterial Blood 0.69 %; Total Hemoglobin 12.3 g/dL (12.0-18.0); pH ABG 7.362 (7.350-7.450)
[2021-06-11 02:12] LABS: Device NON-INVASIVE VENT; Modified Allen's Test Pass; Non-Invasive Expiratory Pressure 8 CMH2O; Non-Invasive Inspiratory Pressure 18 CMH2O; Non-Invasive Vent Rate 24 /MIN; PCO2 ABG 95.2 mmHg (35.0-45.0); Site Drawn LEFT RADIAL
--- NOTE | 2021-06-11 04:24 | ECG_ITS ---
Measurements Intervals [place] Rate: 74 P: RI: 0 QRS: 35 QRSD: 157 T: 48 QT: 414 QTc: 460 Interpretive Statements ATRIAL FIBRILLATION IVCD, WITH FEATURES OF BOTH RBBB AND LBBB BASELINE ARTIFACT- V5 ABNORMAL ECG Electronically Signed On 06-11-2021 7:41:00 PRACTICE LEAD by Sunil Barker D.O.
[2021-06-11 04:42] LABS: Hematocrit 44.4 % (42.0-52.0); Hemoglobin 12.8 g/dL (14.0-18.0); Mean Corpuscular HGB Conc 28.8 g/dl (32-36); Mean Corpuscular Hemoglobin 29.2 pg (26-34); Mean Corpuscular Volume 101.4 fl (80-100); Mean Platelet Volume 9.6 fl (7.4-10.4); Platelet Count Result 158 k/mm3 (150-375); Red Blood Count 4.38 M/mm3 (4.6-6.20); Red Cell Distribution Width 16.6 % (11.5-14.5); White Blood Count 11.2 K/mm3 (4.5-10.0)
[2021-06-11 05:18] LABS: Blood Urea Nitrogen 27 mg/dL (9-20); Carbon Dioxide > 40 mmol/L (22-30); Chloride 78 mmol/L (98-107); Estimated CRCL calculation 250 ml/min; Estimated Glomerular Filt Rate > 60; Glucose 125 mg/dL (65-110); Magnesium 2.1 mg/dL (1.6-2.3); Potassium 5.2 mmol/L (3.4-5.0); Sodium 133 mmol/L (137-145)
[2021-06-11] MEDS: ENOXAPARIN 60 MG/0.6 ML SYRINGE SUB-Q ×2 (05:59→17:57)
[2021-06-11 07:34] LABS: Alveolar/Arterial O2 Gradient 543.1 mmHg; Base Excess ABG 26.2 mEq/l (+/-2.0); Fractional Inspired Oxygen 100 %; HCO3 ABG 56.3 mEq/l (22.0-26.0); Oxygen Content ABG 17.2 %vol (16.0-22.0); Oxygen Saturation ABG 95.3 % (95.0-100.0); PO2 ABG 80.7 mmHg (80.0-100.0); PO2 FiO2 Ratio Arterial Blood 0.81 %; Total Hemoglobin 12.8 g/dL (12.0-18.0); pH ABG 7.418 (7.350-7.450)
[2021-06-11 07:38] LABS: Device BIPAP; Expiratory Pressure 8 cmH2O; Inspiratory Pressure 18 cmH2O; Modified Allen's Test Pass; PCO2 ABG 89.2 mmHg (35.0-45.0); Site Drawn LEFT RADIAL
--- NOTE | 2021-06-11 07:42 | P.CDI_ITS ---
CDI Query Clarification Request -CHF has been documented -BNP 3100 - Lasix 40mg IV BID ordered Please further clarify type and acuity of CHF: * Systolic *Acute * Diastolic *Chronic * Both Systolic and Diastolic *Acute on Chronic * Unable to determine *Unable to determine <Rika aGrg RN - Last Filed: 06/11/21 07:44> Clarified Diagnosis (1) CHF (congestive heart failure): Code(s): I50.9 - Heart failure, unspecified <Rika Garg RN - Last Filed: 06/11/21 07:44> Status: Acute <Rika Garg RN - Last Filed: 06/11/21 07:44> Assessment and Plan: unable to determine as there was no cardiac echo available, <Andrea Mcdonald MD - Last Filed: 06/28/21 18:31>
[2021-06-11] MEDS: BUDESONIDE RESPULE NEB 0.5 MG/2 ML AMP INHALATION ×2 (08:41→19:15)
[2021-06-11] MEDS: LACTIC ACID 12% LOTION 225 BTL 1 APPLIC TOPICAL ×2 (09:18→17:57)
[2021-06-11] MEDS: FUROSEMIDE INJ 40 MG/4 ML VIAL IV PUSH ×2 (09:23→17:57)
--- NOTE | 2021-06-11 11:34 | PM.CNNEP ---
History of Present Illness Reason for Consult Consult date: 06/11/21 Chief Complaint Chief complaint: Hypercapnic Respiratory Failure,CHF [facility] Past Medical History Medical History (Updated 06/10/21 @ 17:41 by Andrea Mcdonald MD) Cardiomegaly CHF (congestive heart failure) COPD (chronic obstructive pulmonary disease) Influenza A Medical history unknown Sleep apnea Surgical History Surgical History Surgical history unknown Social History Social History Smoking status: Never smoker Alcohol intake: never Substance use: never Gender identity (if verbalized by the patient): Male Spiritual care concerns: No Meds Home Medications and Allergies Home Medications Medication Instructions Recorded Confirmed Type pregabalin 75 mg capsule 75 mg PO TID #270 cap 08/15/19 06/11/21 Rx acidophilus-pectin, citrus 1 cap PO DAILY 06/11/21 06/11/21 History [Acidophilus Probiotic] albuterol sulfate 1 inh INHALATION Q6H PRN 06/11/21 06/11/21 History ammonium lactate [Lac-Hydrin Five] 1 applic TOPICAL BID 06/11/21 06/11/21 History aspirin [Aspir-81] 81 mg PO DAILY 06/11/21 06/11/21 History atorvastatin 80 mg PO DAILY 06/11/21 06/11/21 History baclofen 10 mg PO TID 06/11/21 06/11/21 History calcium carbonate-vitamin D3 1 tablet PO TID 06/11/21 06/11/21 History cilostazol 50 mg PO BID 06/11/21 06/11/21 History duloxetine 60 mg PO DAILY 06/11/21 06/11/21 History epinephrine 0.3 mg IM ONCE PRN 06/11/21 06/11/21 History ergocalciferol (vitamin D2) 1,250 mcg PO WEEKLY 06/11/21 06/11/21 History [Vitamin D2] eucalyptus oil-menthol [Cough 1 addis MUCOUS MEMBRANE Q2H PRN 06/11/21 06/11/21 History Drops (with eucalyptus)] furosemide [Lasix] 20 mg PO DAILY 06/11/21 06/11/21 History furosemide [Lasix] 80 mg PO BID 06/11/21 06/11/21 History ipratropium-albuterol 3 ml INHALATION Q4H PRN 06/11/21 06/11/21 History lactulose 15 ml PO TID 06/11/21 06/11/21 History magnesium hydroxide [Milk of 400 mg PO DAILY PRN 06/11/21 06/11/21 History Magnesia] melatonin 5 mg PO HS 06/11/21 06/11/21 History metoprolol succinate 50 mg PO DAILY 06/11/21 06/11/21 History multivitamin with minerals 1 tablet PO DAILY 06/11/21 06/11/21 History oxycodone-acetaminophen 1 tablet PO Q8H PRN 06/11/21 06/11/21 History potassium chloride 20 meq PO BID 06/11/21 06/11/21 History sennosides-docusate sodium [Senna 1 tablet PO BID 06/11/21 06/11/21 History Plus] spironolactone 25 mg PO DAILY 06/11/21 06/11/21 History tamsulosin [Flomax] 0.4 mg PO HS 06/11/21 06/11/21 History temazepam 15 mg PO HS 06/11/21 06/11/21 History Allergies Allergy/AdvReac Type Severity Reaction Status Date / Time gabapentin AdvReac Unknown Verified 06/09/21 10:29 valsartan AdvReac Unknown Verified 06/09/21 10:29 Vital Signs Vital Signs - 24 hr 06/10/21 12:01 06/10/21 12:31 06/10/21 13:31 Temperature Pulse Rate 75 90 102 H Respiratory Rate 23 H 25 H 27 H Blood Pressure 117/100 H 133/108 H 162/78 H Pulse Oximetry 97 84 L 06/10/21 13:42 06/10/21 14:01 06/10/21 14:57 Temperature Pulse Rate 83 97 80 Respiratory Rate 22 H 32 H 26 H Blood Pressure 147/93 H 130/74 Pulse Oximetry 100 82 L 91 06/10/21 15:01 06/10/21 15:31 06/10/21 15:32 Temperature Pulse Rate 73 78 66 Respiratory Rate 25 H 24 H 22 H Blood Pressure 125/63 118/71 118/71 Pulse Oximetry 89 L 78 L 97 06/10/21 16:02 06/10/21 17:22 06/10/21 17:59 Temperature Pulse Rate 85 88 Respiratory Rate 27 H 22 H Blood Pressure 147/130 H 101/84 Pulse Oximetry 86 L 91 95 06/10/21 19:45 06/10/21 20:00 06/10/21 20:45 Temperature 37.2 C Pulse Rate 105 H 92 Respiratory Rate 23 H Blood Pressure 132/74 Pulse Oximetry 94 92 60 L 06/10/21 21:03 06/10/21 21:13 06/10/21 22:00 Temperature Pulse Rate 82 87 86 Respiratory Rate 22 H 22 H Blood Pressure Pulse Oximetry
[2021-06-11] MEDS: METOPROLOL SUCCINATE EXT REL 50 MG TABCR PO (13:19)
[2021-06-11] MEDS: LACTULOSE 20 GM/30 ML UDC 10 GM PO ×2 (13:19→17:55)
[2021-06-11] MEDS: cilostazoL 50 MG TABLET PO ×2 (13:20→17:56)
[2021-06-11] MEDS: THERAPEUTIC MULTIVITAMINS/MINERALS TAB (*BKC) 1 TABLET PO (13:20)
[2021-06-11] MEDS: ERGOCALCIFEROL 50,000 UNIT CAPSULE 50000 UNITS PO (13:20)
[2021-06-11] MEDS: ATORVASTATIN 40 MG TABLET 80 MG PO (13:20)
[2021-06-11] MEDS: BACLOFEN 10 MG TABLET PO ×2 (13:21→17:56)
[2021-06-11] MEDS: ASPIRIN 81 MG ENTERIC TABLET PO (13:21)
[2021-06-11] MEDS: ACIDOPHILUS/BULGARICUS CHEWABLE TABLET 1 TABLET PO (13:21)
[2021-06-11] MEDS: DULoxetine HCL 60 MG CAPSULE.DR PO (13:22)
[2021-06-11] MEDS: acetaZOLAMIDE TAB 250 MG TABLET PO (13:22)
--- NOTE | 2021-06-11 15:25 | PM.CNNEP ---
Assessment and Plan Assessment and plan (1) Hyponatremia: Code(s): E87.1 - Hypo-osmolality and hyponatremia Status: Acute Assessment and Plan: pt has hyponatremia. he is on no meds that do this. will check tsh and cortisol. no history of cancer. 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 this is probably due to his copd. will check osmolality, tsh, cortisol. (2) COPD (chronic obstructive pulmonary disease): Code(s): J44.9 - Chronic obstructive pulmonary disease, unspecified Status: Acute Assessment and Plan: on supportive care. History of Present Illness Reason for Consult Consult date: 06/11/21 Chief Complaint Chief complaint: Hypercapnic Respiratory Failure,CHF History of Present Illness Narrative: Ludwig is an unfortunate male who has obedisty, chf, copd, chronic edema. he came into hospital due to hypoxia. he was swabbed and was covid 19 negative. now on bipap machine. he cannot give a history. his sodium is a bit low. we have no prior labs to see if this is chronic or not. Review of Systems Review of Systems: ROS unobtainable: Yes unobtainable due to medical condition Endocrine: Endocrine: Reports no additional endocrine complaints PMF Past Medical History Medical History (Updated 06/11/21 @ 15:32 by Escobar Linton MD) Cardiomegaly CHF (congestive heart failure) COPD (chronic obstructive pulmonary disease) Hyponatremia Influenza A Medical history unknown Sleep apnea Surgical History Surgical History Surgical history unknown Social History Social History Smoking status: Never smoker Alcohol intake: never Substance use: never Gender identity (if verbalized by the patient): Male Spiritual care concerns: No Meds Home Medications and Allergies Home Medications Medication Instructions Recorded Confirmed Type pregabalin 75 mg capsule 75 mg PO TID #270 cap 08/15/19 06/11/21 Rx acidophilus-pectin, citrus 1 cap PO DAILY 06/11/21 06/11/21 History [Acidophilus Probiotic] albuterol sulfate 1 inh INHALATION Q6H PRN 06/11/21 06/11/21 History ammonium lactate [Lac-Hydrin Five] 1 applic TOPICAL BID 06/11/21 06/11/21 History aspirin [Aspir-81] 81 mg PO DAILY 06/11/21 06/11/21 History atorvastatin 80 mg PO DAILY 06/11/21 06/11/21 History baclofen 10 mg PO TID 06/11/21 06/11/21 History calcium carbonate-vitamin D3 1 tablet PO TID 06/11/21 06/11/21 History cilostazol 50 mg PO BID 06/11/21 06/11/21 History duloxetine 60 mg PO DAILY 06/11/21 06/11/21 History epinephrine 0.3 mg IM ONCE PRN 06/11/21 06/11/21 History ergocalciferol (vitamin D2) 1,250 mcg PO WEEKLY 06/11/21 06/11/21 History [Vitamin D2] eucalyptus oil-menthol [Cough 1 addis MUCOUS MEMBRANE Q2H PRN 06/11/21 06/11/21 History Drops (with eucalyptus)] furosemide [Lasix] 20 mg PO DAILY 06/11/21 06/11/21 History furosemide [Lasix] 80 mg PO BID 06/11/21 06/11/21 History ipratropium-albuterol 3 ml INHALATION Q4H PRN 06/11/21 06/11/21 History lactulose 15 ml PO TID 06/11/21 06/11/21 History magnesium hydroxide [Milk of 400 mg PO DAILY PRN 06/11/21 06/11/21 History Magnesia] melatonin 5 mg PO HS 06/11/21 06/11/21 History metoprolol succinate 50 mg PO DAILY 06/11/21 06/11/21 History multivitamin with minerals 1 tablet PO DAILY 06/11/21 06/11/21 History oxycodone-acetaminophen 1 tablet PO Q8H PRN 06/11/21 06/11/21 History potassium chloride 20 meq PO BID 06/11/21 06/11/21 History sennosides-docusate sodium [Senna 1 tablet PO BID 06/11/21 06/11/21 History Plus] spironolactone 25 mg PO DAILY 06/11/21 06/11/21 History tamsulosin [Flomax] 0.4 mg PO HS 06/11/21 06/11/21 History temazepam 15 mg PO HS 06/11/21 06/11/21 History Allergies Allergy/AdvReac Type Severity Reaction Status Date / Time gabapentin AdvReac Unknown Verified 06/09/21 10:29 valsartan AdvReac Unknown Verified
--- NOTE | 2021-06-11 15:59 | PM.IMPN ---
Progress Note: A&P Assessment and Plan (1) Acute and chronic respiratory failure with hypercapnia: Code(s): J96.22 - Acute and chronic respiratory failure with hypercapnia Status: Acute Assessment and Plan: ED-HPI Narrative: Patient is a 66-year-old male with history of COPD and CHF who is dependent on 2 L O2 via nasal cannula who presents ER with decreased oxygen saturation. Lives in a senior care. Patient found with O2 saturation of 86% and was placed on nonrebreather by EMS with immediate improvement. Patient reports increased sleepiness and fatigue ongoing for couple weeks. No fevers or chills or sweats. Denies cough. Patient reports he does not sleep with the BiPAP as he does not have one. 06/09/2021 interval history morbidly obese with acute respiratory failure hypoxia secondary to hypercarbia currently ABG showed pCO2 of 139 patient is somnolent on BiPAP unable to provide any history review of symptom will continue present management and will monitor. 06/10/2021 interval history morbidly obese with acute respiratory failure hypoxia secondary to hypercarbia upon arrival ABG showed pCO2 of 139 patient is somnolent on BiPAP, repeat ABG this morning showed pCO2 88 today patient agitated and does not want to keep BiPAP keep taking and off patient was given Zyprexa no improved was given Ativan 1 mg time one, give the patient methylprednisone 125 mg time and started the patient 60 mg every 8 hours, will continue duo-neb, and Pulmicort, patient also has history congestive heart failure diurese the patient IV Lasix 40 mg b.i.d. will continue to monitor will have a PT OT evaluate the patient and further recommendation to follow. 06/11/2021 interval history: morbidly obese with acute respiratory failure hypoxia secondary to hypercarbia most likely multifactorial with exacerbation of COPD being treated with methylprednisone, DuoNeb, and Pulmicort as well as exacerbation of CHF being treated with 40 mg IV Lasix b.i.d. and patient is being diuresed, etiology uncertain patient is morbidly obese will do the cardiac echo further evaluation, will have a PT OT evaluate the patient and further recommendation to follow. (2) CHF (congestive heart failure): Code(s): I50.9 - Heart failure, unspecified Status: Acute Assessment and Plan: patient being diuresed (3) COPD (chronic obstructive pulmonary disease): Code(s): J44.9 - Chronic obstructive pulmonary disease, unspecified Status: Acute Assessment and Plan: most likely exacerbation of COPD Subjective Date/time seen: 06/11/21 15:59 ED-HPI Narrative: Patient is a 66-year-old male with history of COPD and CHF who is dependent on 2 L O2 via nasal cannula who presents ER with decreased oxygen saturation. Lives in a senior care. Patient found with O2 saturation of 86% and was placed on nonrebreather by EMS with immediate improvement. Patient reports increased sleepiness and fatigue ongoing for couple weeks. No fevers or chills or sweats. Denies cough. Patient reports he does not sleep with the BiPAP as he does not have one. 06/09/2021 interval history morbidly obese with acute respiratory failure hypoxia secondary to hypercarbia currently ABG showed pCO2 of 139 patient is somnolent on BiPAP unable to provide any history review of symptom will continue present management and will monitor. 06/10/2021 interval history morbidly obese with acute respiratory failure hypoxia secondary to hypercarbia upon arrival ABG showed pCO2 of 139 patient is somnolent on BiPAP, repeat ABG this morning showed pCO2 88 today patient agitated and does not want to keep BiPAP keep taking and off patient was given Zyprexa no improved was given Ativan 1 mg time one, give the patient methylprednisone 125 mg time and started the patient 60 mg every 8 hours, will continue duo-neb, and Pulmicort, patient also has history congestive heart failure katie the patien
[2021-06-11 16:18] LABS: Alveolar/Arterial O2 Gradient 533.3 mmHg; Base Excess ABG 24.2 mEq/l (+/-2.0); Fractional Inspired Oxygen 100 %; HCO3 ABG 52.9 mEq/l (22.0-26.0); Oxygen Content ABG 16.8 %vol (16.0-22.0); Oxygen Saturation ABG 97.5 % (95.0-100.0); PO2 FiO2 Ratio Arterial Blood 1.01 %; Total Hemoglobin 12.2 g/dL (12.0-18.0); pH ABG 7.445 (7.350-7.450)
[2021-06-11 16:20] LABS: Modified Allen's Test Pass; PCO2 ABG 78.7 mmHg (35.0-45.0); Site Drawn LEFT RADIAL
[2021-06-11 16:21] LABS: Device BIPAP; Expiratory Pressure 8 cmH2O; Inspiratory Pressure 18 cmH2O
--- NOTE | 2021-06-11 17:47 | WPDURCON ---
Assessment and Plan Assessment and plan (1) Urinary retention: Code(s): R33.9 - Retention of urine, unspecified Status: Acute (2) Urethral stricture: Code(s): N35.919 - Unspecified urethral stricture, male, unspecified site Status: Acute Assessment and Plan: 66-year-old gentleman with urethral stricture and bladder stone, admitted with CHF exacerbation. I was able to use a cystoscope to identify the urethral stricture and dilated. A 16 F Mclaughlin catheter was inserted. -the patient should maintain Mclaughlin catheter for 2 to 3 weeks, and then a void trial can be performed. -the patient would benefit from treatment of his bladder stone once his medical condition has improved. (3) Bladder stone: Code(s): N21.0 - Calculus in bladder Status: Acute Urology Consult Note HPI Date Seen: 06/11/21 Requesting Physician: Andrea Mcdonald MD Primary Care Provider: Dontrell Trent, Consult Narrative Narrative: Ludwig Allen is a 66 year old male with morbid obesity admitted for CHF exacerbation. Nursing staff was unable to place catheter and Urology was called to place. Patient states at baseline he has a weak urinary stream and difficulty to empty his bladder. He denies previous urologic instrumentation or surgery PMFSH Past Medical History Medical History (Updated 06/11/21 @ 17:50 by Cameron Woodson MD) Cardiomegaly CHF (congestive heart failure) COPD (chronic obstructive pulmonary disease) Hyponatremia Influenza A Medical history unknown Sleep apnea Surgical History Surgical History Surgical history unknown Social History Social History Smoking status: Never smoker Alcohol intake: never Substance use: never Gender identity (if verbalized by the patient): Male Spiritual care concerns: No Meds Home Medications and Allergies Home Medications Medication Instructions Recorded Confirmed Type pregabalin 75 mg capsule 75 mg PO TID #270 cap 08/15/19 06/11/21 Rx acidophilus-pectin, citrus 1 cap PO DAILY 06/11/21 06/11/21 History [Acidophilus Probiotic] albuterol sulfate 1 inh INHALATION Q6H PRN 06/11/21 06/11/21 History ammonium lactate [Lac-Hydrin Five] 1 applic TOPICAL BID 06/11/21 06/11/21 History aspirin [Aspir-81] 81 mg PO DAILY 06/11/21 06/11/21 History atorvastatin 80 mg PO DAILY 06/11/21 06/11/21 History baclofen 10 mg PO TID 06/11/21 06/11/21 History calcium carbonate-vitamin D3 1 tablet PO TID 06/11/21 06/11/21 History cilostazol 50 mg PO BID 06/11/21 06/11/21 History duloxetine 60 mg PO DAILY 06/11/21 06/11/21 History epinephrine 0.3 mg IM ONCE PRN 06/11/21 06/11/21 History ergocalciferol (vitamin D2) 1,250 mcg PO WEEKLY 06/11/21 06/11/21 History [Vitamin D2] eucalyptus oil-menthol [Cough 1 addis MUCOUS MEMBRANE Q2H PRN 06/11/21 06/11/21 History Drops (with eucalyptus)] furosemide [Lasix] 20 mg PO DAILY 06/11/21 06/11/21 History furosemide [Lasix] 80 mg PO BID 06/11/21 06/11/21 History ipratropium-albuterol 3 ml INHALATION Q4H PRN 06/11/21 06/11/21 History lactulose 15 ml PO TID 06/11/21 06/11/21 History magnesium hydroxide [Milk of 400 mg PO DAILY PRN 06/11/21 06/11/21 History Magnesia] melatonin 5 mg PO HS 06/11/21 06/11/21 History metoprolol succinate 50 mg PO DAILY 06/11/21 06/11/21 History multivitamin with minerals 1 tablet PO DAILY 06/11/21 06/11/21 History oxycodone-acetaminophen 1 tablet PO Q8H PRN 06/11/21 06/11/21 History potassium chloride 20 meq PO BID 06/11/21 06/11/21 History sennosides-docusate sodium [Senna 1 tablet PO BID 06/11/21 06/11/21 History Plus] spironolactone 25 mg PO DAILY 06/11/21 06/11/21 History tamsulosin [Flomax] 0.4 mg PO HS 06/11/21 06/11/21 History temazepam 15 mg PO HS 06/11/21 06/11/21 History Allergies Allergy/AdvReac Type Severity Reaction Status Date / Time gabapentin AdvReac Unknown Verified
[2021-06-11] MEDS: SENNA/DOCUSATE SODIUM TABLET 1 TAB PO (17:57)
[2021-06-11 18:27] LABS: Cortisol Random 4.54 ug/dL
[2021-06-11 18:27] LABS: Sodium Urine Random 83 meq/L
[2021-06-11] MEDS: methylPREDNISolone SOD SUCC 125 MG VIAL 60 MG IV PUSH (20:17)
[2021-06-12] VITALS (25 sets, daily range): BP systolic 118–143; BP diastolic 47–57; PULSE 52–100; RESP 14–34; TEMP 36.1–37.1; O2SAT 92–100
[2021-06-12] MEDS: IPRATROPIUM BR 0.02% INH SOLN 0.5 MG/2.5 ML VIAL INHALATION ×3 (04:50→13:47)
[2021-06-12 04:56] LABS: Hematocrit 37.5 % (42.0-52.0); Hemoglobin 11.4 g/dL (14.0-18.0); Mean Corpuscular HGB Conc 30.4 g/dl (32-36); Mean Corpuscular Hemoglobin 29.6 pg (26-34); Mean Corpuscular Volume 97.4 fl (80-100); Mean Platelet Volume 9.9 fl (7.4-10.4); Platelet Count Result 166 k/mm3 (150-375); Red Blood Count 3.85 M/mm3 (4.6-6.20); Red Cell Distribution Width 16.7 % (11.5-14.5); White Blood Count 8.9 K/mm3 (4.5-10.0)
[2021-06-12] MEDS: ENOXAPARIN 60 MG/0.6 ML SYRINGE SUB-Q ×2 (05:06→17:58)
[2021-06-12] MEDS: methylPREDNISolone SOD SUCC 125 MG VIAL 60 MG IV PUSH ×3 (05:06→23:02)
[2021-06-12 05:22] LABS: Blood Urea Nitrogen 23 mg/dL (9-20); Calcium 8.8 mg/dL (8.4-10.2); Carbon Dioxide > 40 mmol/L (22-30); Chloride 79 mmol/L (98-107); Estimated CRCL calculation 196 ml/min; Estimated Glomerular Filt Rate > 60; Glucose 110 mg/dL (65-110); Magnesium 2.3 mg/dL (1.6-2.3); Potassium 3.9 mmol/L (3.4-5.0); Sodium 133 mmol/L (137-145)
[2021-06-12] MEDS: DULoxetine HCL 60 MG CAPSULE.DR PO (08:20)
[2021-06-12] MEDS: LACTULOSE 20 GM/30 ML UDC 10 GM PO ×3 (08:20→17:57)
[2021-06-12] MEDS: FUROSEMIDE INJ 40 MG/4 ML VIAL IV PUSH ×2 (08:20→17:57)
[2021-06-12] MEDS: acetaZOLAMIDE TAB 250 MG TABLET PO (08:21)
[2021-06-12] MEDS: SENNA/DOCUSATE SODIUM TABLET 1 TAB PO ×2 (08:21→17:57)
[2021-06-12] MEDS: cilostazoL 50 MG TABLET PO ×2 (08:21→17:57)
[2021-06-12] MEDS: METOPROLOL SUCCINATE EXT REL 50 MG TABCR PO (08:21)
[2021-06-12] MEDS: ASPIRIN 81 MG ENTERIC TABLET PO (08:21)
[2021-06-12] MEDS: THERAPEUTIC MULTIVITAMINS/MINERALS TAB (*BKC) 1 TABLET PO (08:22)
[2021-06-12] MEDS: LACTIC ACID 12% LOTION 225 BTL 1 APPLIC TOPICAL ×2 (08:22→17:57)
[2021-06-12] MEDS: BACLOFEN 10 MG TABLET PO ×3 (08:23→17:56)
[2021-06-12] MEDS: ACIDOPHILUS/BULGARICUS CHEWABLE TABLET 1 TABLET PO (08:23)
[2021-06-12] MEDS: ATORVASTATIN 40 MG TABLET 80 MG PO (08:23)
[2021-06-12] MEDS: BUDESONIDE RESPULE NEB 0.5 MG/2 ML AMP INHALATION (09:08)
[2021-06-12] MEDS: ALBUTEROL SULFATE NEB 2.5 MG/0.5 ML INH INHALATION (09:09)
--- NOTE | 2021-06-12 09:49 | PM.PNNEP ---
Progress Note: A&P Assessment and Plan (1) Hyponatremia: Code(s): E87.1 - Hypo-osmolality and hyponatremia Status: Acute Assessment and Plan: sodium level appears stable at this time probably due to underlying COPD evaluation to date: no culprit medications except for perhaps narcotics TSH and cortisol okay no history of cancer no [employer] issues follow-up on serum/urine osmolality follow trend of repeat sodium levels (2) COPD (chronic obstructive pulmonary disease): Code(s): J44.9 - Chronic obstructive pulmonary disease, unspecified Status: Chronic Assessment and Plan: on supportive care Will follow from a distance Subjective Date/time seen: 06/12/21 09:49 Chart reviewed - assuming care from Dr. Linton; suspect order for nephrology consultation was in error as reason for consultation listed as unable to pass cabello catheter - renal function remains stable and noted to have mild hyponatremia but is stable; Urology saw yesterday and was able to place cabello catheter with intervention noted. Exam Narrative: General: WD/WN male in NAD Heart: normal S1 and S2; no rub Lungs: clear to auscultation Abdomen: soft, nontender, nondistended, positive bowel sounds Extremities: no cyanosis or clubbing; no edema Skin: warm and dry Objective Data Vital Signs Vital Signs: Vital Signs Temp Pulse Resp BP Pulse Ox 06/12/21 09:17 60 30 H 06/12/21 09:12 57 L 30 H 95 06/12/21 09:09 57 L 30 H 06/12/21 08:21 63 06/12/21 08:00 63 100 06/12/21 06:42 37.1 C 100 33 H 143/57 H 100 06/12/21 05:30 64 06/12/21 04:00 56 L 100 06/12/21 03:57 36.9 C 57 L 34 H 133/55 L 100 06/12/21 02:10 78 95 06/12/21 02:00 57 L 06/12/21 00:00 52 L 100 06/11/21 23:32 92 28 H 06/11/21 23:14 36.9 C 58 L 30 H 129/62 100 06/11/21 22:00 57 L 06/11/21 20:00 36.5 C 61 30 H 123/57 L 96 06/11/21 19:42 78 94 06/11/21 19:40 70 30 H 94 06/11/21 19:15 88 30 H 06/11/21 19:14 76 30 H 06/11/21 18:00 59 L 06/11/21 16:00 36.4 C L 63 31 H 129/61 99 06/11/21 15:52 62 31 H 96 06/11/21 15:50 80 30 H 06/11/21 14:00 63 06/11/21 13:19 65 06/11/21 12:00 36.3 C L 66 30 H 139/62 96 06/11/21 11:50 81 28 H 95 06/11/21 11:07 74 30 H Intake/Output Intake/Output: Intake & Output 06/09/21 06/10/21 06/11/21 06/12/21 23:59 23:59 23:59 23:59 Intake Total 2 110 225 Output Total 651 450 400 Tmaffdd -344 -340 -442 Meds/Results Medications: Active Medications Generic Name Dose Route Start Last Admin Trade Name Freq PRN Reason Stop Dose Admin Acetaminophen 650 mg 06/09/21 14:30 Acetaminophen 325 Mg Tablet PO Q4H PRN Mild Pain (1-3) or Fever Hydrocodone Bitart/Acetaminophen 1 tab 06/09/21 14:30 Hydrocodone/Acetaminophen (*Crx) 5-325 Mg Tablet PO Q4H PRN Pain Rated 4-6 Acetazolamide 250 mg 06/10/21 10:25 06/12/21 08:21 Acetazolamide Tab 250 Mg Tablet PO 250 mg QAM TARUN Administration Albuterol 2.5 mg 06/10/21 10:25 06/12/21 09:09 Albuterol Sulfate Neb 2.5 Mg/0.5 Ml Inh INHALATION 2.5 mg Q4HRT PRN Administration Shortness Of Breath Aspirin 81 mg 06/11/21 09:00 06/12/21 08:21 Aspirin 81 Mg Enteric Tablet PO 81 mg DAILY TARUN Administration Atorvastatin Calcium 80 mg 06/11/21 09:00 06/12/21 08:23 Atorvastatin 40 Mg Tablet PO 80 mg DAILY TARUN Administration Baclofen 10 mg 06/11/21 09:00 06/12/21 08:23 Baclofen 10 Mg Tablet PO 10 mg TID TARUN Administration Budesonide 0.5 mg 06/10/21 10:30 06/12/21 09:08 Budesonide Respule Neb 0.5 Mg/2 Ml Amp INHALATION 0.5 mg Q12HRT TARUN Administration Calcium Carbonate 1 mg 06/11/21 09:00 06/12/21 08:22 Calcium/Vitamin D 500 Mg Tablet PO 1 mg TID TARUN Administration Cilostazol 50 mg 06/11/21 09:00
--- NOTE | 2021-06-12 13:46 | PCRCNOTE ---
Past window of treatment time
[2021-06-12 14:41] LABS: Alveolar/Arterial O2 Gradient 554.6 mmHg; Base Excess ABG 21.5 mEq/l (+/-2.0); Fractional Inspired Oxygen 100 %; HCO3 ABG 48.6 mEq/l (22.0-26.0); Oxygen Saturation ABG 97.2 % (95.0-100.0); Oxyhemoglobin 96.7 % THb (90.0-100.0); PO2 ABG 92.2 mmHg (80.0-100.0); PO2 FiO2 Ratio Arterial Blood 0.92 %; Total Hemoglobin 12.4 g/dL (12.0-18.0); pH ABG 7.484 (7.350-7.450)
[2021-06-12 14:44] LABS: PCO2 ABG 66.2 mmHg (35.0-45.0)
[2021-06-12 14:45] LABS: Device NON-INVASIVE VENT; Modified Allen's Test Pass; Non-Invasive Expiratory Pressure 8 CMH2O; Non-Invasive Inspiratory Pressure 18 CMH2O; Non-Invasive Vent Rate 30 /MIN; Site Drawn RIGHT RADIAL
--- NOTE | 2021-06-12 14:59 | PM.IMPN ---
Progress Note: A&P Assessment and Plan (1) Acute and chronic respiratory failure with hypercapnia: Code(s): J96.22 - Acute and chronic respiratory failure with hypercapnia Status: Acute Assessment and Plan: ED-HPI Narrative: Patient is a 66-year-old male with history of COPD and CHF who is dependent on 2 L O2 via nasal cannula who presents ER with decreased oxygen saturation. Lives in a [facility]. Patient found with O2 saturation of 86% and was placed on nonrebreather by EMS with immediate improvement. Patient reports increased sleepiness and fatigue ongoing for couple weeks. No fevers or chills or sweats. Denies cough. Patient reports he does not sleep with the BiPAP as he does not have one. 06/09/2021 interval history morbidly obese with acute respiratory failure hypoxia secondary to hypercarbia currently ABG showed pCO2 of 139 patient is somnolent on BiPAP unable to provide any history review of symptom will continue present management and will monitor. 06/10/2021 interval history morbidly obese with acute respiratory failure hypoxia secondary to hypercarbia upon arrival ABG showed pCO2 of 139 patient is somnolent on BiPAP, repeat ABG this morning showed pCO2 88 today patient agitated and does not want to keep BiPAP keep taking and off patient was given Zyprexa no improved was given Ativan 1 mg time one, give the patient methylprednisone 125 mg time and started the patient 60 mg every 8 hours, will continue duo-neb, and Pulmicort, patient also has history congestive heart failure diurese the patient IV Lasix 40 mg b.i.d. will continue to monitor will have a PT OT evaluate the patient and further recommendation to follow. 06/11/2021 interval history: morbidly obese with acute respiratory failure hypoxia secondary to hypercarbia most likely multifactorial with exacerbation of COPD being treated with methylprednisone, DuoNeb, and Pulmicort as well as exacerbation of CHF being treated with 40 mg IV Lasix b.i.d. and patient is being diuresed, etiology uncertain patient is morbidly obese will do the cardiac echo further evaluation, will have a PT OT evaluate the patient and further recommendation to follow. 06/12/2021 interval history: morbidly obese with acute respiratory failure hypoxia secondary to hypercarbia most likely multifactorial with exacerbation of COPD being treated with methylprednisone, DuoNeb, and Pulmicort as well as exacerbation of CHF being treated with 40 mg IV Lasix b.i.d. and patient is being diuresed, etiology uncertain patient is morbidly obese will do the cardiac echo further evaluation, today repeat ABG showed improvement in pCO2 to 66 from 139 upon arrival, will take BIPAP off briefly to let the patient eat, will monitor, will have a PT OT evaluate the patient and further recommendation to follow. (2) CHF (congestive heart failure): Code(s): I50.9 - Heart failure, unspecified Status: Acute Assessment and Plan: patient being diuresed (3) COPD (chronic obstructive pulmonary disease): Code(s): J44.9 - Chronic obstructive pulmonary disease, unspecified Status: Acute Assessment and Plan: most likely exacerbation of COPD Subjective Date/time seen: 06/12/21 14:59 ED-HPI Narrative: Patient is a 66-year-old male with history of COPD and CHF who is dependent on 2 L O2 via nasal cannula who presents ER with decreased oxygen saturation. Lives in a [facility]. Patient found with O2 saturation of 86% and was placed on nonrebreather by EMS with immediate improvement. Patient reports increased sleepiness and fatigue ongoing for couple weeks. No fevers or chills or sweats. Denies cough. Patient reports he does not sleep with the BiPAP as he does not have one. 06/09/2021 interval history morbidly obese with acute respiratory failure hypoxia secondary to hypercarbia currently ABG showed pCO2 of 139 patient is somnolent on BiPAP unable to provide any history
[2021-06-12] MEDS: ACETAMINOPHEN 325 MG TABLET 650 MG PO (18:00)
[2021-06-12] MEDS: TAMSULOSIN HCL 0.4 MG CAPSULE PO (20:18)
--- NOTE | 2021-06-12 20:54 | WPDUROPN2 ---
Progress Note: A&P Assessment and Plan (1) Bladder stone: Code(s): N21.0 - Calculus in bladder Status: Acute (2) Urethral stricture: Code(s): N35.919 - Unspecified urethral stricture, male, unspecified site Status: Acute Assessment and Plan: s/p dilation of urethral stricture yesterday by Dr. Woodson - cabello draining well. Per his recommendations, continue cabello for 2-3 wks - bladder stone- will need outpatient intervention once acute issues resolve. Needs to f/u with Yemi or Tony as outpatient to discuss cystolithopaxy Subjective Subjective Date/Time Seen: 06/12/21 12:00 Was sleeping when I saw him. Cabello in place draining large volume of yellow urine. Exam Resp: Effort & Inspection: abnormal respiratory pattern (Bipap on) GI: GI Palp: Yes Soft to palpation Urinary Catheter: Urinary Catheter: urine clear Objective Data Vital Signs Vital Signs: Vital Signs - 24 hr 06/11/21 22:00 06/11/21 23:14 06/11/21 23:32 Temperature 36.9 C Pulse Rate 57 L 58 L 92 Respiratory Rate 30 H 28 H Blood Pressure 129/62 Pulse Oximetry 100 06/12/21 00:00 06/12/21 02:00 06/12/21 02:10 Temperature Pulse Rate 52 L 57 L 78 Respiratory Rate Blood Pressure Pulse Oximetry 100 95 06/12/21 03:57 06/12/21 04:00 06/12/21 05:30 Temperature 36.9 C Pulse Rate 57 L 56 L 64 Respiratory Rate 34 H Blood Pressure 133/55 L Pulse Oximetry 100 100 06/12/21 06:42 06/12/21 08:00 06/12/21 08:21 Temperature 37.1 C Pulse Rate 100 63 63 Respiratory Rate 33 H Blood Pressure 143/57 H Pulse Oximetry 100 100 06/12/21 09:09 06/12/21 09:12 06/12/21 09:17 Temperature Pulse Rate 57 L 57 L 60 Respiratory Rate 30 H 30 H 30 H Blood Pressure Pulse Oximetry 95 06/12/21 10:00 06/12/21 12:00 06/12/21 13:00 Temperature 36.5 C Pulse Rate 59 L 72 Respiratory Rate 30 H Blood Pressure 118/54 L Pulse Oximetry 93 99 06/12/21 13:49 06/12/21 13:50 06/12/21 13:55 Temperature Pulse Rate 70 70 68 Respiratory Rate 30 H 30 H 30 H Blood Pressure Pulse Oximetry 92 06/12/21 14:00 06/12/21 16:00 06/12/21 18:00 Temperature 36.1 C L Pulse Rate 73 68 76 Respiratory Rate 31 H 32 H Blood Pressure 123/47 L Pulse Oximetry 97 92 06/12/21 20:00 Temperature 36.6 C Pulse Rate 77 Respiratory Rate 14 Blood Pressure 120/49 L Pulse Oximetry 93 Intake/Output Intake/Output: Intake & Output 06/09/21 06/10/21 06/11/21 06/12/21 23:59 23:59 23:59 23:59 Intake Total 2 110 665 Output Total 843 231 4799 [facility] -649 -340 -1985 Meds/Results Medications: Active Medications Generic Name Dose Route Start Last Admin Trade Name Freq PRN Reason Stop Dose Admin Acetaminophen 650 mg 06/09/21 14:30 06/12/21 18:00 Acetaminophen 325 Mg Tablet PO 650 mg Q4H PRN Administration Mild Pain (1-3) or Fever Hydrocodone Bitart/Acetaminophen 1 tab 06/09/21 14:30 Hydrocodone/Acetaminophen (*Crx) 5-325 Mg Tablet PO Q4H PRN Pain Rated 4-6 Acetazolamide 250 mg 06/10/21 10:25 06/12/21 08:21 Acetazolamide Tab 250 Mg Tablet PO 250 mg QAM TARUN Administration Albuterol 2.5 mg 06/10/21 10:25 06/12/21 09:09 Albuterol Sulfate Neb 2.5 Mg/0.5 Ml Inh INHALATION 2.5 mg Q4HRT PRN Administration Shortness Of Breath Aspirin 81 mg 06/11/21 09:00 06/12/21 08:21 Aspirin 81 Mg Enteric Tablet PO 81 mg DAILY TARUN Administration Atorvastatin Calcium 80 mg 06/11/21 09:00 06/12/21 08:23 Atorvastatin 40 Mg Tablet PO 80 mg DAILY TARUN Administration Baclofen 10 mg 06/11/21 09:00 06/12/21 17:56 Baclofen 10 Mg Tablet PO 10 mg TID TARUN Administration Budesonide 0.5 mg 06/10/21 10:30 06/12/21 09:08 Budesonide Respule Neb 0.5 Mg/2 Ml Amp INHALATION 0.5 mg Q12HRT TARUN Administration Calcium Carbonate 1 mg 06/11/21 09:00 06/12/21 17:56 Calcium/Vitamin D 500 Mg Tablet PO 1
[2021-06-13] VITALS (20 sets, daily range): BP systolic 117–140; BP diastolic 44–74; PULSE 59–84; RESP 18–30; TEMP 36.2–36.7; O2SAT 92–96
--- NOTE | 2021-06-13 00:28 | PCRCNOTE ---
Window of time for administration has passed. See next scheduled administration.
[2021-06-13] MEDS: ALBUTEROL SULFATE NEB 2.5 MG/0.5 ML INH INHALATION (00:30)
[2021-06-13] MEDS: IPRATROPIUM BR 0.02% INH SOLN 0.5 MG/2.5 ML VIAL INHALATION ×3 (00:30→20:37)
[2021-06-13] MEDS: methylPREDNISolone SOD SUCC 125 MG VIAL 60 MG IV PUSH ×2 (05:59→17:46)
[2021-06-13] MEDS: ENOXAPARIN 60 MG/0.6 ML SYRINGE SUB-Q ×2 (05:59→17:49)
[2021-06-13 06:20] LABS: Hematocrit 38.1 % (42.0-52.0); Hemoglobin 11.6 g/dL (14.0-18.0); Mean Corpuscular HGB Conc 30.4 g/dl (32-36); Mean Corpuscular Hemoglobin 29.1 pg (26-34); Mean Corpuscular Volume 95.7 fl (80-100); Mean Platelet Volume 9.6 fl (7.4-10.4); Platelet Count Result 189 k/mm3 (150-375); Red Blood Count 3.98 M/mm3 (4.6-6.20); Red Cell Distribution Width 16.4 % (11.5-14.5); White Blood Count 6.6 K/mm3 (4.5-10.0)
[2021-06-13 06:33] LABS: Blood Urea Nitrogen 24 mg/dL (9-20); Calcium 8.9 mg/dL (8.4-10.2); Carbon Dioxide > 40 mmol/L (22-30); Chloride 80 mmol/L (98-107); Estimated CRCL calculation 222 ml/min; Estimated Glomerular Filt Rate > 60; Glucose 136 mg/dL (65-110); Magnesium 2.3 mg/dL (1.6-2.3); Potassium 2.9 mmol/L (3.4-5.0); Sodium 132 mmol/L (137-145)
[2021-06-13 08:26] LABS: Alveolar/Arterial O2 Gradient 295.5 mmHg; Base Excess ABG 21.1 mEq/l (+/-2.0); Fractional Inspired Oxygen 60 %; HCO3 ABG 47.3 mEq/l (22.0-26.0); Modified Allen's Test Pass; Oxygen Content ABG 16.7 %vol (16.0-22.0); Oxygen Saturation ABG 94.6 % (95.0-100.0); Oxyhemoglobin 94.3 % THb (90.0-100.0); PCO2 ABG 59.1 mmHg (35.0-45.0); PO2 ABG 67.3 mmHg (80.0-100.0); PO2 FiO2 Ratio Arterial Blood 1.12 %; Site Drawn LEFT RADIAL; Total Hemoglobin 12.6 g/dL (12.0-18.0); pH ABG 7.521 (7.350-7.450)
[2021-06-13 08:27] LABS: Device BIPAP; Expiratory Pressure 8 cmH2O; Inspiratory Pressure 18 cmH2O
[2021-06-13] MEDS: BUDESONIDE RESPULE NEB 0.5 MG/2 ML AMP INHALATION ×2 (08:28→20:37)
[2021-06-13] MEDS: POTASSIUM CHLORIDE 20 MEQ TABLET 40 MEQ PO (08:56)
[2021-06-13] MEDS: THERAPEUTIC MULTIVITAMINS/MINERALS TAB (*BKC) 1 TABLET PO (08:57)
[2021-06-13] MEDS: LACTULOSE 20 GM/30 ML UDC 10 GM PO ×3 (08:57→17:40)
[2021-06-13] MEDS: acetaZOLAMIDE TAB 250 MG TABLET PO (08:58)
[2021-06-13] MEDS: ATORVASTATIN 40 MG TABLET 80 MG PO (08:58)
[2021-06-13] MEDS: ASPIRIN 81 MG ENTERIC TABLET PO (08:58)
[2021-06-13] MEDS: METOPROLOL SUCCINATE EXT REL 50 MG TABCR PO (08:58)
[2021-06-13] MEDS: ACIDOPHILUS/BULGARICUS CHEWABLE TABLET 1 TABLET PO (08:59)
[2021-06-13] MEDS: DULoxetine HCL 60 MG CAPSULE.DR PO (08:59)
[2021-06-13] MEDS: BACLOFEN 10 MG TABLET PO ×3 (08:59→17:42)
[2021-06-13] MEDS: SENNA/DOCUSATE SODIUM TABLET 1 TAB PO ×2 (09:00→17:43)
[2021-06-13] MEDS: FUROSEMIDE INJ 40 MG/4 ML VIAL IV PUSH (09:00)
[2021-06-13] MEDS: cilostazoL 50 MG TABLET PO ×2 (09:00→17:42)
[2021-06-13] MEDS: LACTIC ACID 12% LOTION 225 BTL 1 APPLIC TOPICAL ×2 (09:00→17:43)
[2021-06-13] MEDS: POTASSIUM CHLORIDE INJ 40 MEQ in SODIUM CHLORIDE 0.9% IV 500 ML 130 MEQ IVPB (09:03)
--- NOTE | 2021-06-13 11:41 | PM.IMPN ---
Progress Note: A&P Assessment and Plan (1) Acute and chronic respiratory failure with hypercapnia: Code(s): J96.22 - Acute and chronic respiratory failure with hypercapnia Status: Acute Assessment and Plan: ED-HPI Narrative: Patient is a 66-year-old male with history of COPD and CHF who is dependent on 2 L O2 via nasal cannula who presents ER with decreased oxygen saturation. [facility]. Patient found with O2 saturation of 86% and was placed on nonrebreather by EMS with immediate improvement. Patient reports increased sleepiness and fatigue ongoing for couple weeks. No fevers or chills or sweats. Denies cough. Patient reports he does not sleep with the BiPAP as he does not have one. 06/09/2021 interval history morbidly obese with acute respiratory failure hypoxia secondary to hypercarbia currently ABG showed pCO2 of 139 patient is somnolent on BiPAP unable to provide any history review of symptom will continue present management and will monitor. 06/10/2021 interval history morbidly obese with acute respiratory failure hypoxia secondary to hypercarbia upon arrival ABG showed pCO2 of 139 patient is somnolent on BiPAP, repeat ABG this morning showed pCO2 88 today patient agitated and does not want to keep BiPAP keep taking and off patient was given Zyprexa no improved was given Ativan 1 mg time one, give the patient methylprednisone 125 mg time and started the patient 60 mg every 8 hours, will continue duo-neb, and Pulmicort, patient also has history congestive heart failure diurese the patient IV Lasix 40 mg b.i.d. will continue to monitor will have a PT OT evaluate the patient and further recommendation to follow. 06/11/2021 interval history: morbidly obese with acute respiratory failure hypoxia secondary to hypercarbia most likely multifactorial with exacerbation of COPD being treated with methylprednisone, DuoNeb, and Pulmicort as well as exacerbation of CHF being treated with 40 mg IV Lasix b.i.d. and patient is being diuresed, etiology uncertain patient is morbidly obese will do the cardiac echo further evaluation, will have a PT OT evaluate the patient and further recommendation to follow. 06/12/2021 interval history: morbidly obese with acute respiratory failure hypoxia secondary to hypercarbia most likely multifactorial with exacerbation of COPD being treated with methylprednisone, DuoNeb, and Pulmicort as well as exacerbation of CHF being treated with 40 mg IV Lasix b.i.d. and patient is being diuresed, etiology uncertain patient is morbidly obese will do the cardiac echo further evaluation, today repeat ABG showed improvement in pCO2 to 66 from 139 upon arrival, will take BIPAP off briefly to let the patient eat, will monitor, will have a PT OT evaluate the patient and further recommendation to follow. 06/13/2021 interval history: morbidly obese with acute respiratory failure hypoxia secondary to hypercarbia most likely multifactorial with exacerbation of COPD being treated with methylprednisone, DuoNeb, and Pulmicort as well as exacerbation of CHF being treated with 40 mg IV Lasix b.i.d. and patient is being diuresed, etiology uncertain patient is morbidly obese will do the cardiac echo further evaluation, today repeat ABG showed improvement in pCO2 to 59.1 from 139 upon arrival, will take BIPAP off briefly to let the patient eat, will taper Solu-Medrol 60 mg q.8h to b.i.d. will also lower IV Lasix 40 mg b.i.d. to q.day, will monitor, will have a PT OT evaluate the patient and further recommendation to follow. (2) CHF (congestive heart failure): Code(s): I50.9 - Heart failure, unspecified Status: Acute Assessment and Plan: patient being diuresed (3) COPD (chronic obstructive pulmonary disease): Code(s): J44.9 - Chronic obstructive pulmonary disease, unspecified Status: Acute Assessment and Plan: most likely exacerbation of COPD Subjective Date/time seen:
[2021-06-13] MEDS: cefTRIAXone 2 GM in SODIUM CHLORIDE 0.9% IV 100 ML 200 ML IVPB (17:50)
[2021-06-13] MEDS: TAMSULOSIN HCL 0.4 MG CAPSULE PO (22:33)
[2021-06-13] MEDS: MELATONIN 5 MG TABLET PO (22:33)
[2021-06-13] MEDS: HYDROcodone/acetaminophen (*CRX) 5-325 MG TABLET 1 TAB PO (22:40)
[2021-06-14] VITALS (30 sets, daily range): BP systolic 90–153; BP diastolic 41–72; PULSE 42–76; RESP 22–28; TEMP 35.7–36.7; O2SAT 94–98
[2021-06-14] MEDS: ALBUTEROL SULFATE NEB 2.5 MG/0.5 ML INH INHALATION (01:19)
[2021-06-14] MEDS: IPRATROPIUM BR 0.02% INH SOLN 0.5 MG/2.5 ML VIAL INHALATION ×6 (01:20→20:33)
[2021-06-14] MEDS: ENOXAPARIN 60 MG/0.6 ML SYRINGE SUB-Q ×2 (05:39→17:04)
[2021-06-14 05:53] LABS: Hematocrit 34.9 % (42.0-52.0); Hemoglobin 10.9 g/dL (14.0-18.0); Mean Corpuscular HGB Conc 31.2 g/dl (32-36); Mean Corpuscular Hemoglobin 29.9 pg (26-34); Mean Corpuscular Volume 95.6 fl (80-100); Mean Platelet Volume 9.5 fl (7.4-10.4); Platelet Count Result 163 k/mm3 (150-375); Red Blood Count 3.65 M/mm3 (4.6-6.20); Red Cell Distribution Width 16.3 % (11.5-14.5); White Blood Count 7.7 K/mm3 (4.5-10.0)
[2021-06-14 06:23] LABS: Blood Urea Nitrogen 27 mg/dL (9-20); Calcium 8.5 mg/dL (8.4-10.2); Carbon Dioxide > 40 mmol/L (22-30); Chloride 82 mmol/L (98-107); Estimated CRCL calculation 196 ml/min; Estimated Glomerular Filt Rate > 60; Glucose 138 mg/dL (65-110); Magnesium 2.4 mg/dL (1.6-2.3); Sodium 133 mmol/L (137-145)
--- NOTE | 2021-06-14 06:50 | WPDUROPN2 ---
Progress Note: A&P Assessment and Plan (1) Bladder stone: Code(s): N21.0 - Calculus in bladder Status: Acute (2) Urethral stricture: Code(s): N35.919 - Unspecified urethral stricture, male, unspecified site Status: Acute Assessment and Plan: s/p dilation of urethral stricture yesterday by Dr. Woodson - cabello draining well. Per his recommendations, continue cabello for 2-3 wks - bladder stone- will need outpatient intervention once acute issues resolve. Needs to f/u with Yemi or Tony as outpatient to discuss cystolithopaxy 06/14/21 Will get KUB to determine size of bladder stone Cabello x2-3 weeks. Subjective Subjective Date/Time Seen: 06/14/21 06:50 Sleeping - I did not wake Review of Systems Review of Systems: ROS unobtainable: Yes other Exam Urinary Catheter: Urinary Catheter: patent and draining and urine clear Objective Data Vital Signs Vital Signs: Vital Signs - 24 hr 06/13/21 08:00 06/13/21 08:29 06/13/21 08:58 Temperature 97.8 F Pulse Rate 69 64 68 Respiratory Rate 30 H 27 H Blood Pressure 140/74 Pulse Oximetry 93 06/13/21 10:00 06/13/21 12:00 06/13/21 14:00 Temperature 97.2 F L Pulse Rate 76 62 70 Respiratory Rate 18 Blood Pressure 122/44 L Pulse Oximetry 95 06/13/21 16:00 06/13/21 18:00 06/13/21 20:00 Temperature 98 F 97.2 F L Pulse Rate 70 68 60 Respiratory Rate 20 28 H Blood Pressure 127/61 117/56 L Pulse Oximetry 93 93 06/13/21 20:40 06/13/21 20:46 06/13/21 22:00 Temperature Pulse Rate 62 64 62 Respiratory Rate 18 18 Blood Pressure Pulse Oximetry 06/14/21 00:00 06/14/21 01:23 06/14/21 01:24 Temperature 97.5 F L Pulse Rate 60 57 L 57 L Respiratory Rate 24 H 25 H 25 H Blood Pressure 122/52 L Pulse Oximetry 96 94 06/14/21 01:33 06/14/21 02:00 06/14/21 04:00 Temperature 97.0 F L Pulse Rate 58 L 56 L 60 Respiratory Rate 25 H 24 H Blood Pressure 105/47 L Pulse Oximetry 95 06/14/21 05:16 06/14/21 05:17 06/14/21 06:00 Temperature Pulse Rate 60 60 42 L Respiratory Rate 24 H 25 H Blood Pressure Pulse Oximetry 95 Intake/Output Intake/Output: Intake & Output 06/11/21 06/12/21 06/13/21 06/14/21 23:59 23:59 23:59 23:59 Intake Total 110 665 850 375 Output Total 450 4750 1410 850 Balance -340 -1985 -1600 -475 Meds/Results Medications: Active Medications Generic Name Dose Route Start Last Admin Trade Name Freq PRN Reason Stop Dose Admin Acetaminophen 650 mg 06/09/21 14:30 06/12/21 18:00 Acetaminophen 325 Mg Tablet PO 650 mg Q4H PRN Administration Mild Pain (1-3) or Fever Hydrocodone Bitart/Acetaminophen 1 tab 06/09/21 14:30 06/13/21 22:40 Hydrocodone/Acetaminophen (*Crx) 5-325 Mg Tablet PO 1 tab Q4H PRN Administration Pain Rated 4-6 Acetazolamide 250 mg 06/10/21 10:25 06/13/21 08:58 Acetazolamide Tab 250 Mg Tablet PO 250 mg QAM TARUN Administration Albuterol 2.5 mg 06/10/21 10:25 06/14/21 01:19 Albuterol Sulfate Neb 2.5 Mg/0.5 Ml Inh INHALATION 2.5 mg Q4HRT PRN Administration Shortness Of Breath Aspirin 81 mg 06/11/21 09:00 06/13/21 08:58 Aspirin 81 Mg Enteric Tablet PO 81 mg DAILY TARUN Administration Atorvastatin Calcium 80 mg 06/11/21 09:00 06/13/21 08:58 Atorvastatin 40 Mg Tablet PO 80 mg DAILY TARUN Administration Baclofen 10 mg 06/11/21 09:00 06/13/21 17:42 Baclofen 10 Mg Tablet PO 10 mg TID TARUN Administration Budesonide 0.5 mg 06/10/21 10:30 06/13/21 20:37 Budesonide Respule Neb 0.5 Mg/2 Ml Amp INHALATION 0.5 mg Q12HRT TARUN Administration Calcium Carbonate 1 mg 06/11/21 09:00 06/13/21 17:42 Calcium/Vitamin D 500 Mg Tablet PO 1 mg TID TARUN Administration Cilostazol 50 mg 06/11/21 09:00 06/13/21 17:42 Cilostazol 50 Mg Tablet PO 50 mg BID TARUN Administration Duloxetine HCl 60 mg 06/11/21 09:00 06/13/21 08:59 Duloxetine H
[2021-06-14] MEDS: LACTIC ACID 12% LOTION 225 BTL 1 APPLIC TOPICAL ×2 (08:54→17:05)
[2021-06-14] MEDS: ACIDOPHILUS/BULGARICUS CHEWABLE TABLET 1 TABLET PO (08:55)
[2021-06-14] MEDS: acetaZOLAMIDE TAB 250 MG TABLET PO (08:55)
[2021-06-14] MEDS: ASPIRIN 81 MG ENTERIC TABLET PO (08:56)
[2021-06-14] MEDS: METOPROLOL SUCCINATE EXT REL 50 MG TABCR PO (08:56)
[2021-06-14] MEDS: THERAPEUTIC MULTIVITAMINS/MINERALS TAB (*BKC) 1 TABLET PO (08:56)
[2021-06-14] MEDS: cilostazoL 50 MG TABLET PO ×2 (08:56→17:04)
[2021-06-14] MEDS: BACLOFEN 10 MG TABLET PO ×3 (08:56→17:04)
[2021-06-14] MEDS: FUROSEMIDE INJ 40 MG/4 ML VIAL IV PUSH (08:56)
[2021-06-14] MEDS: ATORVASTATIN 40 MG TABLET 80 MG PO (08:56)
[2021-06-14] MEDS: DULoxetine HCL 60 MG CAPSULE.DR PO (08:56)
[2021-06-14] MEDS: BUDESONIDE RESPULE NEB 0.5 MG/2 ML AMP INHALATION ×2 (09:17→20:33)
[2021-06-14] MEDS: POTASSIUM CHLORIDE 20 MEQ TABLET 40 MEQ PO (10:12)
[2021-06-14] MEDS: methylPREDNISolone SOD SUCC 125 MG VIAL 60 MG IV PUSH (10:13)
[2021-06-14 11:43] LABS: Alveolar/Arterial O2 Gradient 158.9 mmHg; Fractional Inspired Oxygen 40 %; HCO3 ABG 42.2 mEq/l (22.0-26.0); Oxygen Content ABG 15.6 %vol (16.0-22.0); Oxygen Saturation ABG 91.4 % (95.0-100.0); Oxyhemoglobin 91.1 % THb (90.0-100.0); PCO2 ABG 58.7 mmHg (35.0-45.0); PO2 ABG 58.8 mmHg (80.0-100.0); PO2 FiO2 Ratio Arterial Blood 1.47 %; Total Hemoglobin 12.2 g/dL (12.0-18.0); pH ABG 7.475 (7.350-7.450)
[2021-06-14 11:44] LABS: Device HIGH FLOW NASAL CANN; Modified Allen's Test Pass; Site Drawn RIGHT RADIAL
--- NOTE | 2021-06-14 13:32 | PM.DS ---
DS: Admitting Diagnosis Discharge Date 06/14/2021 Admitting Diagnosis shortness of breath DS: Discharge Diagnosis Discharge Diagnosis (1) Acute and chronic respiratory failure with hypercapnia: Code(s): J96.22 - Acute and chronic respiratory failure with hypercapnia Status: Acute Assessment and Plan: ED-HPI Narrative: Patient is a 66-year-old male with history of COPD and CHF who is dependent on 2 L O2 via nasal cannula who presents ER with decreased oxygen saturation. Lives in a shelter. Patient found with O2 saturation of 86% and was placed on nonrebreather by EMS with immediate improvement. Patient reports increased sleepiness and fatigue ongoing for couple weeks. No fevers or chills or sweats. Denies cough. Patient reports he does not sleep with the BiPAP as he does not have one. 06/09/2021 interval history morbidly obese with acute respiratory failure hypoxia secondary to hypercarbia currently ABG showed pCO2 of 139 patient is somnolent on BiPAP unable to provide any history review of symptom will continue present management and will monitor. Chief Complaint: shortness of breath t the patient eat, will taper Solu-Medrol 60 mg q.8h to b.i.d. will also lower IV Lasix 40 mg b.i.d. to q.day, will monitor, will have a PT OT evaluate the patient and further recommendation to follow. (2) CHF (congestive heart failure): Code(s): I50.9 - Heart failure, unspecified Status: Acute Assessment and Plan: patient being diuresed (3) COPD (chronic obstructive pulmonary disease): Code(s): J44.9 - Chronic obstructive pulmonary disease, unspecified Status: Chronic Assessment and Plan: most likely exacerbation of COPD DS: Summary Hospital Course Reason for hospitalization: ED-HPI Narrative: Patient is a 66-year-old male with history of COPD and CHF who is dependent on 2 L O2 via nasal cannula who presents ER with decreased oxygen saturation. Lives in a shelter. Patient found with O2 saturation of 86% and was placed on nonrebreather by EMS with immediate improvement. Patient reports increased sleepiness and fatigue ongoing for couple weeks. No fevers or chills or sweats. Denies cough. Patient reports he does not sleep with the BiPAP as he does not have one. 06/09/2021 interval history morbidly obese with acute respiratory failure hypoxia secondary to hypercarbia currently ABG showed pCO2 of 139 patient is somnolent on BiPAP unable to provide any history review of symptom will continue present management and will monitor. Chief Complaint: shortness of breath Hospital Course: ED-HPI Narrative: Patient is a 66-year-old male with history of COPD and CHF who is dependent on 2 L O2 via nasal cannula who presents ER with decreased oxygen saturation. Lives in a shelter. Patient found with O2 saturation of 86% and was placed on nonrebreather by EMS with immediate improvement. Patient reports increased sleepiness and fatigue ongoing for couple weeks. No fevers or chills or sweats. Denies cough. Patient reports he does not sleep with the BiPAP as he does not have one. 06/09/2021 interval history morbidly obese with acute respiratory failure hypoxia secondary to hypercarbia currently ABG showed pCO2 of 139 patient is somnolent on BiPAP unable to provide any history review of symptom will continue present management and will monitor. 06/10/2021 interval history morbidly obese with acute respiratory failure hypoxia secondary to hypercarbia upon arrival ABG showed pCO2 of 139 patient is somnolent on BiPAP, repeat ABG this morning showed pCO2 88 today patient agitated and does not want to keep BiPAP keep taking and off patient was given Zyprexa no improved was given Ativan 1 mg time one, give the patient methylprednisone 125 mg time and started the patient 60 mg every 8 hours, will continue duo-neb, and Pulmicort, patient also has history congestive heart failure katie
[2021-06-14 14:47] LABS: EDCOVIDSCREEN Negative (Negative)
[2021-06-14] MEDS: LACTULOSE 20 GM/30 ML UDC 10 GM PO (15:38)
[2021-06-14] MEDS: HYDROcodone/acetaminophen (*CRX) 5-325 MG TABLET 1 TAB PO (20:44)
[2021-06-14] MEDS: MELATONIN 5 MG TABLET PO (20:46)
[2021-06-14] MEDS: TAMSULOSIN HCL 0.4 MG CAPSULE PO (20:47)
[2021-06-15] VITALS: PULSE 59; O2SAT 98
[2021-06-15 00:25] VITALS: PULSE 62; RESP 22
[2021-06-15] MEDS: IPRATROPIUM BR 0.02% INH SOLN 0.5 MG/2.5 ML VIAL INHALATION (00:25)
[2021-06-15 19:15] LABS: Osmolality, Urine 438 mOsm/kg (50-1200)
== END 2021-06-15 01:50 | DRG 291 ==
LOC: ANHED 11:03 → ANHIMU 17:17
PROVIDERS: Internal Medicine; Internal Medicine Nephrology; Physician Assistant; Admitting Provider Family Medicine; Emergency Provider Emergency Medicine; PCP Internal Medicine; Visit Provider Family Medicine
DX: I50.9 Heart failure, unspecified (principal); J96.21 Acute and chronic respiratory failure with hypoxia; J96.22 Acute and chronic respiratory failure with hypercapnia; J44.1 Chronic obstructive pulmonary disease with (acute) exacerbation; Z68.45 Body mass index [BMI] 70 or greater, adult; E87.1 Hypo-osmolality and hyponatremia; N21.0 Calculus in bladder; Z20.822 Contact with and (suspected) exposure to COVID-19; N35.819 Other urethral stricture, male, unspecified site; R33.9 Retention of urine, unspecified; E66.01 Morbid (severe) obesity due to excess calories; Z66 Do not resuscitate; Z99.81 Dependence on supplemental oxygen
CPT/HCPCS: 36415; 36569; 36600; 71045; 80048; 82375; 82533; 82805; 83050; 83735; 83880; 83930; 83935; 84300; 84443; 85025; 85027; 87077; 87086; 87088; 87186; 87426; 93005; 94002; 94003; 94640; 96372; 96374; 96375; 99285; A9270; C1751; C1769; C9803; G0378; J0696; J1650; J1940; J2060; J2405; J2930; J3480; J7040

== ENCOUNTER 2021-07-13 07:47 | Emergency (ER) | payer OTHER, MEDICARE, MEDICAID, SELFPAY ==
[2021-07-13] VITALS (40 sets, daily range): BP systolic 50–120; BP diastolic 19–97; PULSE 80–105; RESP 19–32; TEMP 37.1–37.6; O2SAT 77–92
--- NOTE | ~2021-07-13 | XR_ITS ---
EXAMINATION: XR chest 1V portable EXAM DATE: 07/13/2021 09:39 INDICATION: Chest Pain Morbidly Obese Dyspnea . TECHNIQUE: Portable AP frontal chest x-ray was obtained. Comparison is made to prior examination from 06/09/2021. FINDINGS: Completely ellie out right lung, probably combination of pleural effusion and atelectasis. Difficult to quantify how large the pleural effusion has. Patient is rotated toward the right. There is cardiomegaly and pulmonary vascular congestion. Left lung has indistinct reticulation probably ed david but pneumonia not excludable. No pneumothorax. IMPRESSION: 1. Completely opacified right lung, combination of pleural effusion and atelectasis. 2. Cardiomegaly, congestion and probable pulmonary edema. Pneumonia not excludable. Reviewed, dictated and finalized at location B. ER [employer] IMPRESSION: 1. Completely opacified right lung, combination of pleural effusion and atelec tasis. 2. Cardiomegaly, congestion and probable pulmonary edema. Pneumonia not exclud able.
--- NOTE | 2021-07-13 07:51 | ECG_ITS ---
Measurements Intervals [place] Rate: 108 P: NV: 0 QRS: 44 QRSD: 136 T: -15 QT: 338 QTc: 453 Interpretive Statements ATRIAL FIBRILLATION WITH RAPID VENTRICULAR RESPONSE RIGHT BUNDLE BRANCH BLOCK BASELINE ARTIFACT- I, II, III, AVR, V1-V6 ABNORMAL ECG Electronically Signed On 07-13-2021 9:58:52 HOME CARE RN by Sunil Barker D.O.
--- NOTE | 2021-07-13 07:54 | ED.SOB ---
HPI - SOB/Dyspnea General Chief Complaint: Shortness of Breath/Dyspnea Stated Complaint: UNRESPONSIVE Time Seen by Provider: 07/13/21 07:51 Source: EMS Mode of arrival: EMS Limitations: altered mental status and clinical condition History of Present Illness HPI Narrative: Patient is a 63-year-old male brought in by EMS unresponsive with agonal respiration. According to EMS, patient is a residential resident refused to wear his BiPAP overnight and this morning and this is what led to his condition. Patient is a DNR. Based on his advanced directive comfort measures only Related Data Home Medications Medication Instructions Recorded Confirmed Cough Drops (with eucalyptus) 1 addis MUCOUS MEMBRANE Q2H PRN 06/11/21 06/11/21 Lac-Hydrin Five 1 applic TOPICAL BID 06/11/21 06/11/21 acidophilus-pectin, citrus 1 cap PO DAILY 06/11/21 06/11/21 albuterol sulfate 1 inh INHALATION Q6H PRN 06/11/21 06/11/21 aspirin 81 mg PO DAILY 06/11/21 06/11/21 atorvastatin 80 mg PO DAILY 06/11/21 06/11/21 baclofen 10 mg PO TID 06/11/21 06/11/21 calcium carbonate-vitamin D3 1 tablet PO TID 06/11/21 06/11/21 cilostazol 50 mg PO BID 06/11/21 06/11/21 duloxetine 60 mg PO DAILY 06/11/21 06/11/21 epinephrine 0.3 mg IM ONCE PRN 06/11/21 06/11/21 ergocalciferol (vitamin D2) 1,250 mcg PO WEEKLY 06/11/21 06/11/21 [Vitamin D2] furosemide [Lasix] 20 mg PO DAILY 06/11/21 06/11/21 furosemide [Lasix] 80 mg PO BID 06/11/21 06/11/21 ipratropium-albuterol 3 ml INHALATION Q4H PRN 06/11/21 06/11/21 lactulose 15 ml PO TID 06/11/21 06/11/21 magnesium hydroxide [Milk of 400 mg PO DAILY PRN 06/11/21 06/11/21 Magnesia] melatonin 5 mg PO HS 06/11/21 06/11/21 metoprolol succinate 50 mg PO DAILY 06/11/21 06/11/21 multivitamin with minerals 1 tablet PO DAILY 06/11/21 06/11/21 oxycodone-acetaminophen 1 tablet PO Q8H PRN 06/11/21 06/11/21 potassium chloride 20 meq PO BID 06/11/21 06/11/21 sennosides-docusate sodium [Senna 1 tablet PO BID 06/11/21 06/11/21 Plus] spironolactone 25 mg PO DAILY 06/11/21 06/11/21 tamsulosin [Flomax] 0.4 mg PO HS 06/11/21 06/11/21 temazepam 15 mg PO HS 06/11/21 06/11/21 Allergies Allergy/AdvReac Type Severity Reaction Status Date / Time gabapentin AdvReac Unknown Verified 06/16/21 13:10 valsartan AdvReac Unknown Verified 06/16/21 13:10 Review of Systems Review of Systems: All systems reviewed & are unremarkable except as noted in HPI and below ROS unobtainable: Yes unobtainable due to mental status PMFSH Past Medical History Medical History Cardiomegaly CHF (congestive heart failure) COPD (chronic obstructive pulmonary disease) Hyponatremia Influenza A Medical history unknown Sleep apnea Surgical History Surgical History Surgical history unknown Social History Social History Smoking status: Never smoker Alcohol intake: never Substance use: never Gender identity (if verbalized by the patient): Male Spiritual care concerns: No Exam Narrative: PE: Unresponsive Agonal respiration Weak thready pulse Bilateral lower extremity edema Const: Other: Morbidly obese Course Vital Signs Vital signs: Vital Signs Temperature 37.6 C H 07/13/21 07:50 Pulse Rate 105 H 07/13/21 07:50 Respiratory Rate 28 H 07/13/21 07:50 Blood Pressure 120/97 H 07/13/21 07:50 Pulse Oximetry 80 L 07/13/21 07:50 Temperature 37.1 C 07/13/21 12:13 Pulse Rate 94 07/13/21 13:15 Respiratory Rate 20 07/13/21 13:15 Blood Pressure 92/58 L 07/13/21 13:15 Pulse Oximetry 89 L 07/13/21 13:15 MDM - SOB/Dyspnea Lab Data Attestation: I reviewed the patient's lab results. Result diagrams: 07/13/21 08:01 07/13/21 09:20 Labs: Lab Results 07/13/21 07/13/21 07/13/21 Range/Units 08:01 08:01 08:01 WBC 37.8 H (4.5-10.0)
[2021-07-13] MEDS: SODIUM CHLORIDE 0.9% IV 1,000 ML 999 ML ×2 (08:00→08:40)
[2021-07-13 08:17] LABS: Glucose Point of Care 91 mg/dl (65-105)
[2021-07-13] MEDS: PIPERACILLIN/TAZOBACTAM SOD 4.5 GM in SODIUM CHLORIDE 0.9% IV 100 ML 200 ML IVPB (08:29)
[2021-07-13 08:45] LABS: Hematocrit 43.3 % (42.0-52.0); Hemoglobin 12.4 g/dL (14.0-18.0); Mean Corpuscular HGB Conc 28.6 g/dl (32-36); Mean Corpuscular Hemoglobin 29.2 pg (26-34); Mean Corpuscular Volume 101.9 fl (80-100); Mean Platelet Volume 9.4 fl (7.4-10.4); Platelet Count Result 344 k/mm3 (150-375); Red Blood Count 4.25 M/mm3 (4.6-6.20); Red Cell Distribution Width 16.2 % (11.5-14.5); White Blood Count 37.8 K/mm3 (4.5-10.0)
[2021-07-13 08:49] LABS: Lactic Acid Reflex 3.7 mmol/L (0.7-2.1)
[2021-07-13] MEDS: ALBUTEROL SULFATE NEB 2.5 MG/0.5 ML INH 5 MG INHALATION (08:54)
[2021-07-13] MEDS: IPRATROPIUM BR 0.02% INH SOLN 0.5 MG/2.5 ML VIAL INHALATION (08:54)
--- NOTE | 2021-07-13 09:00 | PC.NURSE ---
Family present in room. Family states they do not wish any blood draws for patient comfort. Family ok with drawing from established IV site.
[2021-07-13 09:13] LABS: Add Urine Microscopic? YES; Appearance Urine Cloudy (Clear); Bacteria Urine 3+ /hpf; Bilirubin Urine Negative (Negative); Blood Urine Negative (Negative); Glucose Urine UA Negative (Negative); Ketones Urine Negative (Negative); Leukocyte Esterase Ur 3+ LEU/UL (Negative); Mucus Urine Few /lpf; Nitrate Urine Negative (Negative); Protein Urine 3+ mg/dL (Negative); RBC Urine 21-50 /hpf (0-2); Squamous Epithelial Cell Urine Occasional /hpf (Few); Urobilinogen Urine Negative mg/dL (<2.0); WBC Urine >75 /hpf
[2021-07-13 09:19] LABS: Color Urine Amber (Yellow)
[2021-07-13 09:24] LABS: Band Neutrophils Percent 35 % (0-6); Lymphocytes Absolute Manual 1.51 K/mm3 (1.1-4.5); Monocytes Absolute Manual 3.02 K/mm3 (0.1-0.90); Monocytes Percent Manual 8 % (3-9); Neutrophils Absolute Manual 33.26 K/mm3 (1.3-6.7); Neutrophils Percent Manual 53 % (46-73); Total Cells Counted 100
[2021-07-13 09:25] LABS: Atypical Lymphocytes Present
[2021-07-13 09:34] LABS: SARS-CoV-2 RNA PCR Negative
[2021-07-13 09:43] LABS: Alanine Aminotransferase 33 U/L (4-50); Albumin Level 2.9 g/dL (3.5-5.1); Alkaline Phosphatase 312 U/L (38-126); Aspartate Amino Transferase 53 U/L (17-59); Bilirubin,Total 2.7 mg/dL (0.2-1.3); Blood Urea Nitrogen 19 mg/dL (9-20); Calcium 8.6 mg/dL (8.4-10.2); Carbon Dioxide > 40 mmol/L (22-30); Chloride 89 mmol/L (98-107); Estimated CRCL calculation 147 ml/min; Estimated Glomerular Filt Rate > 60; Glucose 105 mg/dL (65-110); Potassium 4.2 mmol/L (3.4-5.0); Sodium 134 mmol/L (137-145)
[2021-07-13] MEDS: SODIUM CHLORIDE 0.9% IV 1,000 ML 150 ML (10:42)
[2021-07-13 11:36] LABS: Reflex Lactic Acid Yes or No Add Lactic
--- NOTE | 2021-07-13 11:40 | PCCCNOTE ---
Pt gravely ill and unable to make decision for himself. Pt already a DNR and family would like to make pt comfort care with hospice. Family inquire if pt could move to [facility] in [place] under hospice care. I have place call to [facility] to find out if this is possible; they indicated that they would call me back with info if this is possible. Family updated and ask to look over hospice providers that can admit to [facility] as a back up plan.
[2021-07-13 12:11] LABS: Lactic Acid 2.4 mmol/L (0.7-2.1)
--- NOTE | 2021-07-13 12:31 | PCCCNOTE ---
A transfer to [place] appears unlikely; The family choose [facility] for hospice care at [facility]. [facility] [place] contacted and referral made at 1220 and order faxed at [phone].
--- NOTE | 2021-07-13 13:25 | PCCCNOTE ---
[facility] here and evaluating pt and interviewing family
--- NOTE | 2021-07-13 15:15 | PC.NURSE ---
patient transferred inhouse via bedcart on hospice with family members. Patient report given Lizzie CHENG
== END 2021-07-13 18:30 | disposition hospice, inpatient (51) ==
PROVIDERS: Emergency Provider Emergency Medicine; PCP Internal Medicine
DX: J96.00 Acute respiratory failure, unspecified whether with hypoxia or hypercapnia (principal); Z20.822 Contact with and (suspected) exposure to COVID-19; I50.9 Heart failure, unspecified; I51.7 Cardiomegaly; J44.9 Chronic obstructive pulmonary disease, unspecified; G47.30 Sleep apnea, unspecified; Z79.82 Long term (current) use of aspirin; I48.91 Unspecified atrial fibrillation; I45.10 Unspecified right bundle-branch block; J90 Pleural effusion, not elsewhere classified; R91.8 Other nonspecific abnormal finding of lung field
CPT/HCPCS: 36415; 71045; 80053; 81001; 82948; 83605; 84484; 85025; 87040; 87086; 87088; 93005; 94640; 96361; 96365; 99285; C9803; J2543; J7030; U0003; U0005

== ENCOUNTER 2021-07-13 16:34 | HOS | payer OTHER, MEDICARE, MEDICAID, SELFPAY ==
--- NOTE | 2021-07-13 14:00 | PM.IMHP ---
H&P: HPI History of Present Illness Date/Time: 07/13/21 14:00 Chief Complaint: Unresponsive. Narrative: This is a 66-year-old male with multiple medical problems including chronic respiratory failure, obstructive sleep apnea, congestive heart failure, hypertension, COPD, and several other comorbidities who presented to the emergency department today via EMS for evaluation after he was found unresponsive. Given his clinical condition he is unable to provide a history and as such all of the following is obtained via a review of his electronic medical records as well as discussions with his and son who are at bedside. He has been a shelter resident for approximately 3 years and his sees him and speaks with him frequently. She last saw him on Monday at which time he was in good spirits though he seemed a bit more short of breath than usual. She spoke with him on the phone prior to dinner last evening and typically he will call her before going to bed however he did not last sign she assumes that he had fallen asleep early. At 07:00 she received a phone call from nursing staff after he was found unresponsive and hypoxic with low blood pressures. It is my understanding that he did not wear his BiPAP last night though that is not necessarily unusual for him. The patient is a DNR and after multiple discussions family members have decided to admit him under hospice care with [facility]. At the time my evaluation he is resting comfortably on a non-rebreather. He is unresponsive, does not answer questions, or follow commands. Review of Systems Review of Systems: ROS unobtainable: Yes unobtainable due to medical condition PMFSH Past Medical History Medical History (Updated 07/13/21 @ 21:05 by Catalina Gant PA-C) Anemia Bipolar disorder Cardiomegaly Chronic obstructive pulmonary disease Chronic respiratory failure Congestive heart failure Morbid obesity Obstructive sleep apnea Paroxysmal atrial fibrillation Surgical History Surgical History Surgical history unknown Family History Family History (Updated 07/13/21 @ 20:59 by Catalina Gant PA-C) Other Family history unknown Social History Social History (Updated 07/13/21 @ 20:59 by Catalina Gant PA-C) Social History: care home resident. to [place]. No alcohol, tobacco, or drug use. Meds Home Medications and Allergies Home Medications Medication Instructions Recorded Confirmed Type pregabalin 75 mg capsule 75 mg PO TID #270 cap 08/15/19 06/11/21 Rx oxycodone-acetaminophen 5 mg-325 1 tablet PO QID PRN #240 tablet 10/30/19 Rx mg tablet Cough Drops (with eucalyptus) 1 addis MUCOUS MEMBRANE Q2H PRN 06/11/21 06/11/21 History Lac-Hydrin Five 1 applic TOPICAL BID 06/11/21 06/11/21 History acidophilus-pectin, citrus 1 cap PO DAILY 06/11/21 06/11/21 History albuterol sulfate 1 inh INHALATION Q6H PRN 06/11/21 06/11/21 History aspirin 81 mg PO DAILY 06/11/21 06/11/21 History atorvastatin 80 mg PO DAILY 06/11/21 06/11/21 History baclofen 10 mg PO TID 06/11/21 06/11/21 History calcium carbonate-vitamin D3 1 tablet PO TID 06/11/21 06/11/21 History cilostazol 50 mg PO BID 06/11/21 06/11/21 History duloxetine 60 mg PO DAILY 06/11/21 06/11/21 History epinephrine 0.3 mg IM ONCE PRN 06/11/21 06/11/21 History ergocalciferol (vitamin D2) 1,250 mcg PO WEEKLY 06/11/21 06/11/21 History [Vitamin D2] furosemide [Lasix] 20 mg PO DAILY 06/11/21 06/11/21 History furosemide [Lasix] 80 mg PO BID 06/11/21 06/11/21 History ipratropium-albuterol 3 ml INHALATION Q4H PRN 06/11/21 06/11/21 History lactulose 15 ml PO TID 06/11/21 06/11/21 History magnesium hydroxide [Milk of 400 mg PO DAILY PRN 06/11/21 06/11/21 History Magnesia] melatonin 5 mg PO HS 06/11/21 06/11/21 History metoprolol succinate 50 mg PO DAILY 06/11/21 06/11/21 History multivitamin with minerals 1 tablet PO DAILY 06/11/21 06/11/21 History o
--- NOTE | 2021-07-13 15:39 | ADMGEN ---
This patient, Ludwig Allen, was admitted to [facility] Surg Room 318-01. Patient/family oriented to hospital policies and general routines including ID bracelet, bed and alarms, visiting hours, pain management, procedures, bathroom and other care routines, personal items, smoking policy, room service/diet, and visiting hours. Information on how to activate the Rapid Response Team has been discussed. Patient/Family are encouraged to report perceived risks to care and to ask questions if they do not understand what they are told or what they should do.
[2021-07-13 16:07] VITALS: BP 98/82; PULSE 77; RESP 20; TEMP 35.9; O2SAT 96
[2021-07-13 16:08] VITALS: BMI 101.4
[2021-07-13] MEDS: MORPHINE SULFATE INJ (*CRX) 50 MG in SODIUM CHLORIDE 0.9% IV 95 ML IV CONT (17:44)
[2021-07-13 18:55] VITALS: O2SAT 95
[2021-07-13 20:00] VITALS: BP 85/42; PULSE 77; PULSE 86; RESP 20; TEMP 36.2; O2SAT 95; O2SAT 98
[2021-07-14] MEDS: LORazepam INJ (*CRX) 2 MG/ML VIAL 1 MG IV PUSH ×2 (03:03→04:41)
[2021-07-14] MEDS: ATROPINE SULFATE 1% OPHTH SOLN 5 ML BOTTLE 1 DROP SUBLINGUAL (08:55)
--- NOTE | 2021-07-14 10:05 | P.DN_ITS ---
Discharge Summary Date and Time Date of : 07/14/21 Time of : 10:05 Provider Pronounced By: Steffi Murcia Probable Cause of Probable Cause of : Acute on Chronic respiratory failure Summary Hospital Course: patient is 63-year-old male with a past medical history of CHF, ANDRAE, AFib, bipolar disorder, anemia who presented to the ED from the care home due to being unresponsive and hypotensive. Patient was a care home resident he refused to with his BiPAP overnight. Upon arrival to the ED patient's saturations were noted to be in the 70s and 80s. Patient was placed on a non-rebreather however was unable to maintain saturations over 90. blood pressure was also noted to be low. Family was called in and patient was already a DNR and was decided to make the patient comfortable with hospice. Patient was signed over to [facility] and this morning at 10:05 a.m. Additional Data Confirmation of as documented by pronouncing clinician: Pupillary Reflex, Palpable Pulses, Response to Stimuli, Heart Tones and Breath Sounds Name of Provider Notified: Michael Clay NP Time Provider Notified: 10:05 Was code activated?: No Provider Requests Autopsy: No Family Requests Autopsy: No [employer] Notified: Yes Date [facility] Notified of : 07/14/21 Time [facility] Notified of : 10:48 Advance directives: Yes Hospice patient?: Yes
--- NOTE | 2021-07-14 11:42 | PC.NURSE ---
Family remains at bedside with patient. Hospice nurse here. All tubes and nasal trumpet removed previously.
== END 2021-07-14 10:05 | disposition expired | DRG 951 ==
PROVIDERS: Admitting Provider Hospitalist; PCP Internal Medicine; Visit Provider Hospitalist
DX: Z51.5 Encounter for palliative care (principal); J96.21 Acute and chronic respiratory failure with hypoxia; Z68.45 Body mass index [BMI] 70 or greater, adult; I95.9 Hypotension, unspecified; I11.0 Hypertensive heart disease with heart failure; I50.9 Heart failure, unspecified; G47.33 Obstructive sleep apnea (adult) (pediatric); F31.9 Bipolar disorder, unspecified; J44.9 Chronic obstructive pulmonary disease, unspecified; D64.9 Anemia, unspecified; E66.01 Morbid (severe) obesity due to excess calories; I48.0 Paroxysmal atrial fibrillation; Z66 Do not resuscitate
CPT/HCPCS: A9270; J2060; J2270